=== PATIENT | male | born 1940 | race Caucasian/White ===

== ENCOUNTER 2017-04-11 12:53 | Inpatient (IN) | payer OTHER ==
[2017-04-11 13:28] LABS: BILIRUBIN,URINE NEGATIVE (NEGATIVE); BLOOD/HEMOGLOBIN,URINE 3+ (NEGATIVE); GLUCOSE, URINE NEGATIVE (NEGATIVE); KETONES,URINE NEGATIVE (NEGATIVE); LEUKOCYTE ESTERASE ,URINE NEGATIVE (NEGATIVE); NITRITES,URINE NEGATIVE (NEGATIVE); PROTEIN,URINE 3+ (NEGATIVE); UROBILINOGEN,URINE NORMAL (NORMAL)
[2017-04-11 13:34] LABS: APPEARANCE,URINE HAZY (CLEAR); COLOR,URINE YELLOW (YELLOW)
[2017-04-11 13:36] LABS: RBC,URINE 0-2 /HPF (NEGATIVE)
[2017-04-11 13:37] LABS: BACTERIA,URINE TRACE /HPF (NEGATIVE); MUCUS,URINE FEW /HPF (NEGATIVE); SQUAMOUS EPITHELIAL CELL,UR NEGATIVE /HPF (NEGATIVE)
[2017-04-11 13:38] LABS: BASOPHILS # (AUTO) 0.1 X10^3/uL (0.0-0.1); BASOPHILS % (AUTO) 0.6 % (0.2-1.0); EOSINOPHILS # (AUTO) 0.1 x10^3/uL (0.0-0.2); EOSINOPHILS % (AUTO) 1.1 % (0.9-2.9); HEMATOCRIT 44.3 % (42.0-54.0); HEMOGLOBIN 14.9 g/dL (13.5-18.0); LYMPHOCYTES # (AUTO) 0.7 X10^3/uL (1.3-2.9); LYMPHOCYTES % (AUTO) 5.5 % (21.0-51.0); MEAN CORPUSCULAR HEMOGLOBIN 30.2 pg (27.0-34.0); MEAN CORPUSCULAR HGB CONC 33.6 g/dL (33.0-35.0); MEAN PLATELET VOLUME 8.1 fL (7.4-11.0); MONOCYTES # (AUTO) 1.1 x10^3/uL (0.3-0.8); MONOCYTES % (AUTO) 8.2 % (0.0-13.0); NEUTROPHILS # (AUTO) 11.4 x10^3/uL (2.2-4.8); NEUTROPHILS % (AUTO) 84.6 % (42.0-75.0); PLATELET COUNT 349 X10^3/uL (150.0-450.0); RED BLOOD COUNT 4.92 X10^6/uL (4.7-6.0); RED CELL DISTRIBUTION WIDTH 15.6 % (11.6-16.5); WHITE BLOOD COUNT 13.4 X10^3/uL (3.6-10.0)
--- NOTE | 2017-04-11 13:44 | DR.AMS ---
HPI - Time Seen Time seen: 13:10 - PCP Primary Care Physician: REGINA RODRIGUEZ - HPI Comment HPI Comment: DIAGNOSE WITH A FIB. MEDICATION NOT FILL YET. PLACE ON ASPIRIN DUE TO FRQENT FALL AND CARDIOZEM. NO FEVER. HAVE G TUBE RECENTLY PLACE THAT MAY BE DISLODGE.PATIENT EATS PUREE AND THICKEN FLUID. TAKE MEDS ORAALY WELL PER PPPPATIENTS . - Complaint Cheif Complaint Doctors Comments: AMS, WEAK, FREQUENT FALL. Chief Complaint:: PT BROUGHT TO ER PER [facility] WITH C/O HIS NOT BEING ABLE TO TAKE CARE OF HIM AND HIM HAVING ALZHEIMERS AND DEMENITIA , AND PT' PEG TUBE DOES NOT LOOK RIGHT TO HIS ... EMS STATES " PTS SAY'S SHE DONE.. Self Treatment fo Chief Complaint: PTS PEG TUBE IS INTACT PLACEMENT CHECKED ,,, , DARK DRAINAGE NOTED . - Reviewed Nurses Notes Reviewed: Yes - Source History Provided: Patient, EMS - Mode of Arrival Mode of Arrival: EMS - Timing Onset of Chief Complaint: 04/11/17 Came On: Gradually Symptoms: Worsening - Duration Duration: Constant Duration: Days - Severity Severity: Moderate, Unable to care for self - Context History Of: Dementia - Associated Signs and Symptoms Associated Signs and Symptoms: Generalized Weakness, Change in Memory PMH - PMH Past Medical History: No Past Surgical History: No - Family History History of Family Medical Conditions: No - Social History Does any household member use tobacco: No Alcohol Use: None Lives With: Family Lives Where: Home - infectious screening In the last 2 months have you had wt loss of >10#?: YES Have you had fever, night sweats or hemotysis?: No Have you traveled outside the country in the last 6 months?: No Isolation: Standard ROS - Review of Systems Constitutional: Weakness, Fatigue. negative: Chills, Fever Eyes: negative: Eye Pain, Discharge ENTM: No Symptoms Reported. negative: Ear Pain, Nose Discharge, Nose Congestion , Throat Pain Respiratoy: Non-Productive Cough, Short of Breath, Wheezing. negative: Productive Cough, Hemoptysis Cardiovascular: negative: Syncope (NEAR SYNCOPE) Gastrointestinal/Abdominal: Abdominal Pain (PAIN AROUNG G TUBE) Genitourinary: negative: Dysuria, Hematuria Neurological: Headache, Weakness, Dizziness Musculoskeletal: Muscle Pain Integumentary: Rash Hematologic/Lymphatic: Easy Bleeding, Easy Bruising Endocrine: Increased Thirst All Other Systems: Reviewed and Negative PE - Vitals Vital Signs: Temp Pulse Pulse Resp BP BP Pulse Ox 04/12/17 06:31 170/82 04/12/17 04:00 98.7 F 108 H 17 153/82 98 04/12/17 00:00 98.9 F 113 H 20 150/96 98 04/11/17 20:00 98.9 F 119 H 18 172/88 98 04/11/17 17:00 127 H 18 184/92 99 04/11/17 16:42 127 H 15 177/100 100 04/11/17 16:00 99 F 124 H 15 183/100 100 04/11/17 14:56 102 H 18 166/92 100 04/11/17 14:55 119 H 20 162/99 100 04/11/17 12:54 97.2 F L 114 H 20 178/108 100 - General Limitations: Altered Mental Status General Appearance: Alert - Head Head Exam: Normal Inspection Head Exam Physical: Other (NONE) - Eyes Eye exam: PERRL. negative: Scleral Icterus, Conjunctival Injection Pupils: Regular, Round: Bilateral, Reactive: Bilateral - ENT ENT Exam: Normal Oropharynx, Normal External Ear Exam, TM's Normal Bilaterally External Ear Exam: Normal External Inspection TM/Canal Exam: Bilateral Normal Nose Exam: Normal Nose Exam Mouth Exam: Normal Inspection Throat Exam: Normal Inspection - Neck Neck Exam: Normal Inspection - Chest Chest Inspection: Symmetric Chest Wall Rise - Respiratory Respiratory Exam: Normal Lung Sounds Bilat Respiratory Exam: Bilateral Wheezing, Bilateral Rhonchi, Lower Wheezing, Lower Rhonchi - Cardiovascular Cardiovascular Exam: Tachycardia, Irregular Rhythm - Abdominal Exam Abdominal Exam: Normal Bowel Sounds, Soft, Tenderness Abdominal Tenderness: Mild - Extremities Extremities Exam: Edema (1 PLUS) - Back Back Exam: Paraspinal Tenderness - Neurological Cranial Nerve Exam: EOM Function (II, III, IV, ): Normal, Facial Sensation (V) : Normal, Facial Palsy (VII): Normal, Gag reflex (XI): Normal, Tongue Deviation : Normal Upper Motor Neuron Exam: Babinski Sign: Normal DTR: achilles tendon (L): 4+, achilles tendon (R): 4+ - Psychological Psychiatric Exam: Agitated - Skin Skin Exam: Erythema MDM - Additional Information Obtained Additional Information Obtained From: Family - Differential Diagnosis Metabolic: Dehydration, Hypercalcemia, Hypernatremia, Hypoglycemia, Hyponatremia , Hypoxemia Infectious: Sepsis, UTI Course - Treatment Treatment: SEE ORDERS. - Consultation Consultation Comments: DISCUSS PATIENT WITH DR. LAU. HE WILL ADMIT PATIENT. - Education/Counseling Education/Counseling: Patient, Family Educated On: Diagnosis ROR - Labs Reviewed Laboratory Results Reviewed?: Yes Result Diagrams: 04/12/17 05:25 04/12/17 05:25 Laboratory: 04/12/17 05:46 Peg Tube Gram Stain - Final WBC 10.0 X10^3/uL (3.6-10.0) 04/12/17 05:25 RBC 4.39 X10^6/uL (4.7-6.0) L 04/12/17 05:25 Hgb 13.4 g/dL (13.5-18.0) L 04/12/17 05:25 Hct 39.6 % (42.0-54.0) L 04/12/17 05:25 MCV 90.2 fL (80.0-100.0) 04/12/17 05:25 MCH 30.6 pg (27.0-34.0) 04/12/17 05:25 MCHC 33.9 g/dL (33.0-35.0) 04/12/17 05:25 RDW 15.2 % (11.6-16.5) 04/12/17 05:25 Plt Count 336 X10^3/uL (150.0-450.0) 04/12/17 05:25 MPV 8.4 fL (7.4-11.0) 04/12/17 05:25 Neut % 81.7 % (42.0-75.0) H 04/12/17 05:25 Lymph % 7.0 % (21.0-51.0) L 04/12/17 05:25 [place] % 8.7 % (0.0-13.0) 04/12/17 05:25 Eos % 2.1 % (0.9-2.9) 04/12/17 05:25 Baso % 0.5 % (0.2-1.0) 04/12/17 05:25 Neut # 8.2 x10^3/uL (2.2-4.8) H 04/12/17 05:25 Lymph # 0.7 X10^3/uL (1.3-2.9) L 04/12/17 05:25 [place] # 0.9 x10^3/uL (0.3-0.8) H 04/12/17 05:25 Eos # 0.2 x10^3/uL (0.0-0.2) 04/12/17 05:25 Baso # 0.0 X10^3/uL (0.0-0.1) 04/12/17 05:25 Absolute Nucleated RBC 0.0 /100WBC 04/12/17 05:25 INR Target Range - 04/12/17 05:25 INR 1.17 (0.8-1.3) 04/12/17 05:25 PTT 38.7 SECONDS (22.9-36.5) H 04/12/17 05:25 PTT Comment - 04/12/17 05:25 Sodium 140 mmol/L (136-145) 04/12/17 05:25 Corrected Sodium TNP 04/12/17 05:25 Potassium 3.6 mmol/L (3.5-5.1) 04/12/17 05:25 Chloride 103 mmol/L (98-107) 04/12/17 05:25 Carbon Dioxide 28.3 mmol/L (21-32) 04/12/17 05:25 BUN 18 mg/dL (7-18) 04/12/17 05:25 Creatinine 1.39 mg/dL (0.70-1.30) H 04/12/17 05:25 Est GFR (MDRD) Af Amer > 60 (>60) 04/12/17 05:25 Est GFR (MDRD) Non-Af 53 (>60) L 04/12/17 05:25 Glucose 96 mg/dL (65-99) 04/12/17 05:25 POC Glucose (mg/dL) 108 mg/dL (65-99) H 04/12/17 05:27 Calcium 9.0 mg/dL (8.5-10.1) 04/12/17 05:25 Corrected Calcium 9.8 mg/dL (8.5-10.1) 04/12/17 05:25 Total Bilirubin 0.40 mg/dL (0.2-1.0) 04/12/17 05:25 AST 27 Units/L (15-37) 04/12/17 05:25 ALT 35 Units/L (12-78) 04/12/17 05:25 Alkaline Phosphatase 215 Units/L (46-116) H 04/12/17 05:25 Creatine Kinase 77 Units/L (39-308) 04/12/17 01:40 CK-MB (CK-2) < 1.0 ng/mL (0-4.0) 04/12/17 01:40 CK/CKMB % Calc 1.3 % (<4) 04/12/17 01:40 Troponin I 0.04 ng/mL (0-1.5) 04/12/17 01:40 Total Protein 7.3 g/dL (6.4-8.2) 04/12/17 05:25 Albumin 3.0 g/dL (3.4-5.0) L 04/12/17 05:25 Globulin 4.3 g/dL (2.5-4.5) 04/12/17 05:25 Albumin/Globulin Ratio 0.7 Ratio (1.1-2.1) L 04/12/17 05:25 Triglycerides 65 mg/dL (0-150) 04/12/17 05:25 Cholesterol 170 mg/dL (0-200) 04/12/17 05:25 LDL Cholesterol, Calc 72 mg/dL (0-100) 04/12/17 05:25 HDL Cholesterol 85 mg/dL (40-60) H 04/12/17 05:25 Cholesterol/HDL Ratio 2.0 (0.0-5.0) 04/12/17 05:25 Specimen Type Catherized urine 04/11/17 13:19 Urine Color Yellow (YELLOW) 04/11/17 13:19 Urine Appearance Hazy (CLEAR) 04/11/17 13:19 Urine pH 7.0 (5.0 - 8.0) 04/11/17 13:19 Ur Specific [place] 1.005 (1.000-1.030) 04/11/17 13:19 Urine Protein 3+ (NEGATIVE) 04/11/17 13:19 Urine Glucose (UA) Negative (NEGATIVE) 04/11/17 13:19 Urine Ketones Negative (NEGATIVE) 04/11/17 13:19 Urine Occult Blood 3+ (NEGATIVE) 04/11/17 13:19 Urine Nitrite Negative (NEGATIVE) 04/11/17 13:19 Urine Bilirubin Negative (NEGATIVE) 04/11/17 13:19 Urine Urobilinogen Normal (NORMAL) 04/11/17 13:19 Ur Leukocyte Esterase Negative (NEGATIVE) 04/11/17 13:19 Urine RBC 0-2 /HPF (NEGATIVE) 04/11/17 13:19 Urine WBC 0-2 /HPF (NEGATIVE) 04/11/17 13:19 Ur Squamous Epith Cells Negative /HPF (NEGATIVE) 04/11/17 13:19 Urine Bacteria Trace /HPF (NEGATIVE) 04/11/17 13:19 Urine Mucus Few /HPF (NEGATIVE) 04/11/17 13:19 Ur Culture Indicated? No/not indicated 04/11/17 13:19 - XRAY XRAY Interpreted by: Radiologist XRAY Findings: REPORT DISCUSS WITH PATIENT. - EKG Rhythm: Afib (WITH RVR. EKG NOTED.) - Diagnosis Discharge Problem: Atrial fibrillation with RVR, Dehydration, Generalized weakness Altered mental status Qualifiers: Altered mental status type: disorientation Qualified Code(s): R41.0 - Disorientation, unspecified - Discharge Plan Disposition: ADMITTED INPATIENT Condition: Stable - Follow ups/Referrals - Instructions
[2017-04-11 13:54] LABS: BLOOD UREA NITROGEN 24 mg/dL (7-18); CALCIUM 9.6 mg/dL (8.5-10.1); CARBON DIOXIDE 27.7 mmol/L (21-32); CHLORIDE 101 mmol/L (98-107); COR NA(FOR HYPERGLY) 142 mmol/L (136-145); CREATININE 1.68 mg/dL (0.70-1.30); SODIUM 141 mmol/L (136-145); TROPONIN I 0.03 ng/mL (0-1.5); eGFR BLACK RACES 51 (>60); eGFR NON BLACK RACES 42 (>60)
[2017-04-11 13:58] LABS: ALANINE AMINOTRANSFERASE 43 Units/L (12-78); ALBUMIN 3.5 g/dL (3.4-5.0); ALKALINE PHOSPHATASE 249 Units/L (46-116); ASPARTATE AMINO TRANSFERASE 34 Units/L (15-37); CKMB % 1.5 % (<4); CREATINE KINASE 102 Units/L (39-308); CREATINE KINASE MB 1.5 ng/mL (0-4.0); TOTAL PROTEIN 8.2 g/dL (6.4-8.2)
--- NOTE | 2017-04-11 14:10 | RAD ---
HISTORY: Chest pain Study: Single view of the chest. Comparison: None. Findings: The cardiomediastinal silhouette is normal. No focal consolidations, pleural effusions or pneumothora x. Osseous structures demonstrate no acute abnormality. IMPRESSION: 1. No acute cardiopulmonary process. Reported By:
--- NOTE | 2017-04-11 14:20 | RAD ---
HISTORY: Peg tube placement. Study: Two views of the abdomen. Comparison: None. Findings: There is a PEG tube overlying the expected area of the stomach. Contrast injection demonstrates contr ast within the stomach . Evaluation of the abdomen demonstrates a normal bowel gas pattern. No patho logical soft tissue mass or calcification can be observed. The bony structures are grossly intact. IMPRESSION: 1. No evidence for acute abdominal pathology identified. 2. A PEG tube that appears to be in good position. Reported By:
[2017-04-11] MEDS ORDERED: NS 1000 ML 1,000 ML ONE (14:52)
[2017-04-11] MEDS ORDERED: CARDIZEM TAB 30 MG PLAIN ONE (15:13)
[2017-04-11] MEDS ORDERED: CARDIZEM TAB 30 MG PLAIN PO SCH (16:00)
[2017-04-11] MEDS: NS 1000 ML 1,000 ML IV SCH (16:23)
[2017-04-11] MEDS ORDERED: COREG TAB 6.25 MG ONE (18:11)
[2017-04-11] MEDS: COREG TAB 6.25 MG PO SCH ×2 (18:15→21:29)
[2017-04-11 19:44] LABS: CKMB % 1.3 % (<4); CREATINE KINASE MB 1.1 ng/mL (0-4.0); TROPONIN I 0.03 ng/mL (0-1.5)
[2017-04-11] MEDS: NORCO 5/325 MG TAB PO PRN (20:58)
[2017-04-11] MEDS: VALIUM PO PRN (20:58)
[2017-04-11] MEDS: CARDIZEM TAB 30 MG PLAIN PO SCH (20:59)
[2017-04-11] MEDS: HumuLIN R SUBCUT PRN (21:01)
[2017-04-12] MEDS: NS 1000 ML 1,000 ML IV SCH ×4 (01:10→21:18)
[2017-04-12 02:09] LABS: CKMB % 1.3 % (<4); CREATINE KINASE 77 Units/L (39-308); CREATINE KINASE MB < 1.0 ng/mL (0-4.0); TROPONIN I 0.04 ng/mL (0-1.5)
[2017-04-12 05:40] LABS: BASOPHILS % (AUTO) 0.5 % (0.2-1.0); EOSINOPHILS # (AUTO) 0.2 x10^3/uL (0.0-0.2); EOSINOPHILS % (AUTO) 2.1 % (0.9-2.9); HEMATOCRIT 39.6 % (42.0-54.0); HEMOGLOBIN 13.4 g/dL (13.5-18.0); LYMPHOCYTES # (AUTO) 0.7 X10^3/uL (1.3-2.9); MEAN CORPUSCULAR HEMOGLOBIN 30.6 pg (27.0-34.0); MEAN CORPUSCULAR HGB CONC 33.9 g/dL (33.0-35.0); MEAN CORPUSCULAR VOLUME 90.2 fL (80.0-100.0); MEAN PLATELET VOLUME 8.4 fL (7.4-11.0); MONOCYTES # (AUTO) 0.9 x10^3/uL (0.3-0.8); MONOCYTES % (AUTO) 8.7 % (0.0-13.0); NEUTROPHILS # (AUTO) 8.2 x10^3/uL (2.2-4.8); NEUTROPHILS % (AUTO) 81.7 % (42.0-75.0); PLATELET COUNT 336 X10^3/uL (150.0-450.0); RED BLOOD COUNT 4.39 X10^6/uL (4.7-6.0); RED CELL DISTRIBUTION WIDTH 15.2 % (11.6-16.5)
[2017-04-12 05:56] LABS: ALANINE AMINOTRANSFERASE 35 Units/L (12-78); ALKALINE PHOSPHATASE 215 Units/L (46-116); ASPARTATE AMINO TRANSFERASE 27 Units/L (15-37); BLOOD UREA NITROGEN 18 mg/dL (7-18); CARBON DIOXIDE 28.3 mmol/L (21-32); CHLORIDE 103 mmol/L (98-107); CHOLESTEROL 170 mg/dL (0-200); COR CA(FOR HYPOALB) 9.8 mg/dL (8.5-10.1); CREATININE 1.39 mg/dL (0.70-1.30); HDL CHOLESTEROL 85 mg/dL (40-60); SODIUM 140 mmol/L (136-145); TOTAL PROTEIN 7.3 g/dL (6.4-8.2); TRIGLYCERIDES 65 mg/dL (0-150); eGFR BLACK RACES > 60 (>60); eGFR NON BLACK RACES 53 (>60)
[2017-04-12] MEDS: CARDIZEM TAB 30 MG PLAIN PO SCH (06:02)
[2017-04-12] MEDS: VALIUM PO PRN (06:03)
[2017-04-12] MEDS: NORCO 5/325 MG TAB PO PRN ×2 (06:05→20:52)
[2017-04-12] MEDS: COREG TAB 6.25 MG PO SCH ×2 (08:22→20:52)
[2017-04-12] MEDS ORDERED: BISACODYL PO PRN (08:56)
[2017-04-12] MEDS ORDERED: TYLENOL 325 MG TAB PO PRN (08:56)
[2017-04-12] MEDS ORDERED: OXYBUTYNIN CHLORIDE PO SCH (09:00)
[2017-04-12] MEDS ORDERED: IMODIUM CAP 2 MG PO PRN (09:04)
[2017-04-12] MEDS ORDERED: DULCOLAX TAB EC 5 MG PO PRN (09:33)
[2017-04-12] MEDS: CARDIZEM INJ 125 MG VIAL 125 MG in NS 100 ML IV 100 ML IV PRN (09:56)
[2017-04-12] MEDS: ELIQUIS PO SCH ×2 (09:57→20:49)
[2017-04-12] MEDS: FERROUS SULFATE PO SCH (09:57)
[2017-04-12] MEDS: TAB-A-VITE PO SCH (09:58)
[2017-04-12] MEDS: EFFEXOR XR 75 MG CAP PO SCH (09:58)
[2017-04-12] MEDS: ZANTAC PO SCH ×2 (09:58→20:52)
[2017-04-12] MEDS: FLOMAX PO SCH (09:58)
--- NOTE | 2017-04-12 10:50 | DR.H&P ---
H&P - History & Physical for Day of: H&P Date: 04/11/17 - Chief Complaint Chief Complaint: ALTERED MENTAL STATUS, A-FIB - Allergies Allergies/Adverse Reactions: Allergies Allergy/AdvReac Type Severity Reaction Status Date / Time Penicillins Allergy Verified 04/11/17 13:52 Sulfa (Sulfonamide Allergy Verified 04/11/17 13:52 Antibiotics) - History of Present Illness History of Present Illness: IS A 76 YEAR OLD PATIENT OF OURS WHO PRESENTED TO THE EMERGENCY ROOM VIA EMS FROM [facility] WITH ALTERED MENTAL STATUS. PATIENTS STATES THAT HE HAS BEEN CONFUSED AND AGITATED AT HOME AND THAT SHE IS NO LONGER ABLE TO CARE FOR HIM HERSELF DUE TO HIS CONDITION GRADUALLY GETTING WORSE. SHE REPORTS THAT PATIENT WAS RECENTLY IN THE [facility] IN [place], HOWEVER, SHE PULLED HIM OUT AND BROUGHT HIM HOME TO TRY TO TAKE CARE OF HIM HERSELF. SHE WISHES FOR PLACEMENT IN [facility] TO BE CONSIDERED. A HISTORY OF ALZHEIMERS AND DEMENTIA IS NOTED. SHE ALSO REPORTS THAT PATIENT IS UNABLE TO TOLERATED ORAL FLUIDS AND GETS STRANGLED. PATIENT HAS A PEG TUBE. DARK DRAINAGE IS NOTED AROUND SITE OF PEG TUBE. ON EXAMINATION, PATIENT IS ORIENTED TO HIS ONLY. LUNGS ARE NOTED CLEAR TO AUSCULTATION BILATERALLY. ABDOMEN IS SOFT, ROUND, NON-TENDER WITH NORMAL BOWEL SOUNDS NOTED IN ALL QUADRANTS. ON ARRIVAL TO ER, VITALS WERE 97.1-404-65-100%-178/108. CBC, CMP, URINALYSIS, AND XRAYS WERE OBTAINED. ABNORMAL LAB VALUES INCLUDE THE FOLLOWING: WBC 13.4, BUN 24, CREATININE 1.68, GFR af 51, GFR non 42, Glucose 140, Alk Phos 249, Globulin 4.7, A/G Ratio 0.7. URINALYSIS REPORTS Hazy, Protein 3+, Occult Blood 3+, RBC 0-2, WBC 0-2, Bacteria Trace, Mucus Few. CHEST XRAY REPORTS NO ACUTE CARDIOPULMONARY PROCESS. KUB REPORTS NO EVIDENCE FOR ACUTE ABDOMINAL PATHOLOGY IDENTIFIED. A PEG TUBE THAT APPEARS TO BE IN GOOD POSITION. EKG REPORTS ATRIAL FIBRILLATION WITH HR 114. HE WAS GIVEN CARDIZEM 30MG PO IN ER. PATIENT WAS ADMITTED TO ICU FOR FURTHER TREATMENT AND EVALUATION OF A-FIB, AMS, DEHYDRATION, AND WEAKNESS. HE WAS STARTED ON COREG 6.25MG PO BID, VALIUM 5MG PO Q8H PRN, DILTIAZEM 60MG PO Q8H, REGULAR INSULIN SLIDING SCALE, AND NORMAL SALINE AT 75ML/HR. AM LABS WERE ORDERED AND WILL CONTINUE TO MONITOR PATIENT. - Past Medical History Past Medical History: Alzheimers, Coronary Artery Disease, Dementia, Depression , Diabetes, Dyslipidemia, GERD, Hypertension Additional Medical History: PARKINSONS, A-FIB - Past Surgical History Surgical History: Appendectomy, CABG/Valve Surgery, Tonsillectomy - Social History Does patient currently use any type of tobacco product: No Have you used tobacco products in the last 12 months: No Type of Tobacco Use: None How many years tobacco product used: 35 Does any household member use tobacco: No Alcohol Use: None Drug Use: Prescription Drugs - Medications Home Medications: Acetaminophen [TYLENOL 325 MG TAB *] 1 tab PO Q6H PRN 04/11/17 [History Confirmed 04/11/17] Amlodipine Besylate [NORVASC 10 MG *] 1 tab PO DAILY 04/11/17 [History Confirmed 04/11/17] Aspirin [ASPIRIN 81 MG CHEWTAB *] 1 tab PO HS 04/11/17 [History Confirmed ] Bisacodyl [Correctol] 2 tabs PO PRN PRN 04/11/17 [History Confirmed 04/11/17] Carvedilol [COREG TAB 12.5 MG *] 1 tab PO BID 04/11/17 [History Confirmed ] Diazepam [Valium 10 mg] 1 tab PO TID PRN 04/11/17 [History Confirmed 04/11/17] Donepezil HCl [Aricept] 23 mg PO HS 04/11/17 [History Confirmed 04/11/17] Ferrous Sulfate [FERROUS SULFATE *] 1 tab PO DAILY 04/11/17 [History Confirmed 04/11/17] Gabapentin [NEURONTIN CAP 100 MG *] 1 tab PO TID 04/11/17 [History Confirmed ] Hydrocodone-Acet 7.5 mg/325 mg [NORCO 7.5 MG/325 MG *] 1 tab PO TID PRN [History Confirmed 04/11/17] Lamotrigine [Lamotrigine Odt] 1 tab PO TID 04/11/17 [History Confirmed 04/11/17] Loperamide HCl [Loperamide] 1 tab PO TID PRN 04/11/17 [History Confirmed ] Memantine HCl [Namenda] 28 mg PO HS 04/11/17 [History Confirmed 04/11/17] Mirtazapine [Remeron 30 mg] 1 tab PO HS 04/11/17 [History Confirmed 04/11/17] Multivitamin [Once Daily] 1 tab PO DAILY 04/11/17 [History Confirmed 04/11/17] Oxybutynin Chloride [Ditropan Xl] 1 tab PO DAILY 04/11/17 [History Confirmed ] Pravastatin Sodium 1 tab PO HS 04/11/17 [History Confirmed 04/11/17] Primidone [MYSOLINE 50 MG *] 1 tab PO HS 04/11/17 [History Confirmed 04/11/17] Quetiapine Fumarate 1 tab PO HS 04/11/17 [History Confirmed 04/11/17] Ranitidine HCl [ZANTAC TAB 150 MG *] 1 tab PO BID 04/11/17 [History Confirmed ] Tamsulosin HCl [FLOMAX (GENERIC) 0.4 MG *] 1 tab PO DAILY 04/11/17 [History Confirmed 04/11/17] Trazodone HCl 1 - 2 tabs PO HS PRN 04/11/17 [History Confirmed 04/11/17] Venlafaxine HCl [Venlafaxine HCl ER] 1 tab PO TID 04/11/17 [History Confirmed ] - Review of Systems Constitutional: Weakness Eyes: No Symptoms Reported ENT: No Symptoms Reported Respiratory: No Symptoms Reported Cardiovascular: No Symptoms Reported Gastrointestinal: No Symptoms Reported Genitourinary: No Symptoms Reported Musculoskeletal: No Symptoms Reported Skin: No Symptoms Reported Neurological: See HPI, Weakness, Confusion - Physical Exam Vital Signs: Temperature 98.7 F Pulse Rate [Right Brachial] 108 Pulse Rate 114 Respiratory Rate 17 Blood Pressure [Right Arm] 170/82 Blood Pressure 178/108 O2 Sat by Pulse Oximetry 98 Oriented: Person, Not Oriented (ONLY ORIENTED TO ) Eyes: Normal Ear: Normal Nose: Normal Throat: Normal Respiratory: Clear Throughout Cardiovascular: Tachycardia : Normal Auscultation: Bowel Sounds: Normal Palpation: Normal Tenderness: Normal Skin: Normal Musculoskeletal: Instability Psychiatric: Agitation, Other (CONFUSION, AMS ) Mood Description: Anxious Affect: Anxious Speech Pattern: Clear - Assessment/Plan (1) Atrial fibrillation with RVR Status: Acute Plan: CARDIZEM 60MG PO Q8H, TELEMETRY, CONTINUE TO MONITOR (2) Altered mental status Qualifiers: Altered mental status type: disorientation Qualified Code(s): R41.0 - Disorientation, unspecified Status: Acute Plan: VALIUM 5 MG PO Q8H, CONTINUE TO MONITOR (3) Dehydration Status: Acute Plan: NORMAL SALINE @ 75ML/HR, CONTINUE TO MONITOR
[2017-04-12] MEDS: OXYBUTYNIN CHLORIDE ER PO SCH (11:57)
[2017-04-12] MEDS ORDERED: ARICEPT TAB 10 MG PO SCH (12:00)
[2017-04-12] MEDS ORDERED: NAMENDA TAB 10 MG PO SCH (12:00)
[2017-04-12] MEDS: HumuLIN R SUBCUT PRN ×2 (12:32→18:26)
[2017-04-12] MEDS: ARICEPT TAB 10 MG PO SCH (12:55)
[2017-04-12] MEDS: NAMENDA TAB 10 MG PO SCH (12:55)
[2017-04-12] MEDS ORDERED: LAMOTRIGINE PO SCH (14:00)
[2017-04-12] MEDS ORDERED: COLACE CAP 100 MG PO PRN (15:02)
[2017-04-12] MEDS ORDERED: MILK OF MAGNESIA PO PRN (15:02)
[2017-04-12] MEDS: LAMICTAL TAB 100 MG PO SCH ×2 (15:03→21:07)
[2017-04-12] MEDS: NEURONTIN CAP 100 MG PO SCH ×2 (15:04→21:07)
[2017-04-12] MEDS: KLONOPIN TAB 0.5 MG PO SCH (20:50)
[2017-04-12] MEDS: PRAVACHOL PO SCH (20:50)
[2017-04-12] MEDS: REMERON PO SCH (20:51)
[2017-04-12] MEDS: ASPIRIN 81 MG CHEWTAB PO SCH (20:52)
[2017-04-12] MEDS: SNACK - Diabetic Appropriate PO SCH (20:53)
[2017-04-12] MEDS ORDERED: MIRTAZAPINE PO SCH (21:00)
[2017-04-13] MEDS: CARDIZEM INJ 125 MG VIAL 125 MG in NS 100 ML IV 100 ML IV PRN (01:38)
[2017-04-13 05:20] LABS: ALANINE AMINOTRANSFERASE 38 Units/L (12-78); ALBUMIN 2.8 g/dL (3.4-5.0); ALKALINE PHOSPHATASE 211 Units/L (46-116); ASPARTATE AMINO TRANSFERASE 34 Units/L (15-37); BLOOD UREA NITROGEN 23 mg/dL (7-18); CALCIUM 8.4 mg/dL (8.5-10.1); CARBON DIOXIDE 22.9 mmol/L (21-32); CHLORIDE 101 mmol/L (98-107); COR CA(FOR HYPOALB) 9.4 mg/dL (8.5-10.1); COR NA(FOR HYPERGLY) 141 mmol/L (136-145); CREATININE 1.44 mg/dL (0.70-1.30); SODIUM 135 mmol/L (136-145); TOTAL PROTEIN 6.8 g/dL (6.4-8.2); eGFR BLACK RACES > 60 (>60); eGFR NON BLACK RACES 51 (>60)
[2017-04-13 05:29] LABS: BASOPHILS # (AUTO) 0.1 X10^3/uL (0.0-0.1); BASOPHILS % (AUTO) 0.7 % (0.2-1.0); EOSINOPHILS # (AUTO) 0.3 x10^3/uL (0.0-0.2); EOSINOPHILS % (AUTO) 2.9 % (0.9-2.9); HEMATOCRIT 38.5 % (42.0-54.0); LYMPHOCYTES % (AUTO) 11.4 % (21.0-51.0); MEAN CORPUSCULAR HEMOGLOBIN 30.8 pg (27.0-34.0); MEAN CORPUSCULAR HGB CONC 33.7 g/dL (33.0-35.0); MEAN CORPUSCULAR VOLUME 91.5 fL (80.0-100.0); MEAN PLATELET VOLUME 8.4 fL (7.4-11.0); MONOCYTES # (AUTO) 0.8 x10^3/uL (0.3-0.8); MONOCYTES % (AUTO) 9.2 % (0.0-13.0); NEUTROPHILS # (AUTO) 6.7 x10^3/uL (2.2-4.8); NEUTROPHILS % (AUTO) 75.8 % (42.0-75.0); PLATELET COUNT 326 X10^3/uL (150.0-450.0); RED BLOOD COUNT 4.21 X10^6/uL (4.7-6.0); RED CELL DISTRIBUTION WIDTH 15.3 % (11.6-16.5); WHITE BLOOD COUNT 8.8 X10^3/uL (3.6-10.0)
[2017-04-13] MEDS: LAMICTAL TAB 100 MG PO SCH ×3 (06:11→21:06)
[2017-04-13] MEDS: NEURONTIN CAP 100 MG PO SCH ×3 (06:11→21:06)
--- NOTE | 2017-04-13 06:52 | RAD ---
HISTORY: Shortness of breath Study: Chest AP portable Comparison: April 11, 2017 Findings: The patient is status post median sternotomy and CABG. The heart is within normal limits in size. The yash are normal. No acute alveolar infiltrates or pleural effusions are identified. The bony thorax is unremarkable. IMPRESSION: Lungs remain clear Reported By:
[2017-04-13 06:57] VITALS: BMI 16.0
[2017-04-13] MEDS: NS 1000 ML 1,000 ML IV SCH ×3 (07:16→20:44)
[2017-04-13] MEDS: OXYBUTYNIN CHLORIDE ER PO SCH (08:30)
[2017-04-13] MEDS: COREG TAB 6.25 MG PO SCH ×2 (08:30→20:41)
[2017-04-13] MEDS: ELIQUIS PO SCH ×2 (08:30→20:41)
[2017-04-13] MEDS: ZANTAC PO SCH ×2 (08:30→20:40)
[2017-04-13] MEDS: TAB-A-VITE PO SCH (08:30)
[2017-04-13] MEDS: FLOMAX PO SCH (08:30)
[2017-04-13] MEDS: FERROUS SULFATE PO SCH (08:30)
[2017-04-13] MEDS: EFFEXOR XR 75 MG CAP PO SCH (08:30)
[2017-04-13] MEDS: DIFLUCAN 200 MG IV PREMIX* 200 MG/100 ML BAG IV SCH (10:31)
--- NOTE | 2017-04-13 11:09 | PCM.PROG ---
Progress Note - Progress Note for Day of Date: 04/12/17 - Subjective Subjective: WAS ADMITTED FOR ATRIAL FIBRILLATION AND ALTERED MENTAL STATUS. HE IS ALERT AND ORIENTED, SITTING UP IN BED ON MORNING ROUNDS. PATIENT' S IS AT BEDSIDE. TODAY, PATIENT IS NOTED WITH COMPLAINTS OF FEELING LIKE HIS HEART IS RACING AND GENERALIZED WEAKNESS. PATIENT'S REPORTS THAT HE DID NOT SLEEP WELL LAST NIGHT, NOR DOES HE USUALLY SLEEP WELL AT HOME. PATIENT IS NOTED ON TELEMETRY WITH HEARTRATE AT 133 AND RHYTHM SHOWING ATRIAL FIBRILLATION ON MONITOR. HE IS WEARING NASAL CANNULA WITH OXGYEN AT 2LPM. ON EXAMINATION, LUNGS ARE NOTED CLEAR TO AUSCULTATION. ABDOMEN IS SOFT, ROUND, AND NON-TENDER. NORMAL BOWEL SOUNDS ARE NOTED IN ALL QUADRANTS. A PEG TUBE IS NOTED WITH BROWN DRAINAGE. WE WILL ORDER FOR DAILY DRESSING CHANGES AND A WOUND CULTURE OF SITE. HIS VITAL SIGNS THIS MORNING ARE 98.4-133-17-98%-188/101. CBC, CMP, AND EKG WERE OBTAINED. ABNORMAL LAB VALUES INCLUDE THE FOLLOWING: RBC 4.39 , HGB 13.4, HCT 39.6, PTT 38.7, CREATININE 1.39, ALK PHOS 215, ALBUMIN 3.0, HDL 85. EKG REPORTED ATRIAL FIBRILLATION WITH HR OF 113. WHEN QUESTIONED ABOUT HIS CARDIAC HISTORY, PATIENT STATED THAT HE HAD A HEART ATTACK WITH BYPASS AND STENTS IN 1993. HE REPORTS A HISTORY OF CHF AND ATRIAL FIBRILLATION IN THE PAST. PATIENT'S REPORTS THAT SHE DOESN'T FEEL LIKE SHE WOULD BE ABLE TO CARE FOR HIM AT HOME BY HERSELF ANYMORE. SHE WOULD LIKE HIM TO BE CONSIDERED FOR SHELTER PLACEMENT AT [facility]. WE PLAN TO OBTAIN AN ECHOCARDIOGRAM, START ON A CARDIZEM DRIP AND DISCONTINUE THE PO CARDIZEM. WE WILL START KLONOPIN 0.5MG HS AND INCREASE SEROQUEL TO 100MG HS, START ELIQUIS 2.5MG PO BID, GIVE NAMENDA AND ARICEPT AT NOON. WE WILL REVIEW HOME MEDICATIONS. CASE MANAGEMENT WILL ARRANGE FOR PLACEMENT AT [facility]. OTHERWISE, WE PLAN TO FOLLOW UP WITH AM LABS AND CONTINUE TO MONITOR PATIENT. - Past Medical Family Social History Past Med/Fam/Surg Hx: No changes since H&P Allergies: Allergies Penicillins Allergy (Verified 04/11/17 13:52) Sulfa (Sulfonamide Antibiotics) Allergy (Verified 04/11/17 13:52) - Review of Systems ROS: No change since H&P - Vital Signs and I&O's Vital Signs: Temperature 98.7 F Pulse Rate [Right Brachial] 52 Pulse Rate 114 Respiratory Rate 16 Blood Pressure [Right Arm] 98/56 Blood Pressure 178/108 O2 Sat by Pulse Oximetry 97 Intake and Output: Intake & Output 04/10/17 04/11/17 04/12/17 04/13/17 11:59 11:59 11:59 11:59 Intake Total 1450 4218 Output Total 1200 1350 Balance 250 2868 - Physical Exam Oriented: Person, Not Oriented (ONLY ORIENTED TO ) Eyes: Normal Ear: Normal Nose: Normal Throat: Normal Cardiovascular: Tachycardia : Normal Auscultation: Bowel Sounds: Normal Palpation: Normal Tenderness: Normal Skin: Normal Musculoskeletal: Instability Psychiatric: Agitation, Other (CONFUSION, AMS ) Mood Description: Anxious Affect: Anxious Speech Pattern: Clear - Laboratory and Diagnostics Result Diagrams: 04/13/17 04:55 04/13/17 04:55 Labs: 04/12/17 05:46 Peg Tube Gram Stain - Final 04/12/17 05:46 Peg Tube Wound Culture - Preliminary Laboratory WBC 8.8 X10^3/uL (3.6-10.0) 04/13/17 04:55 RBC 4.21 X10^6/uL (4.7-6.0) L 04/13/17 04:55 Hgb 13.0 g/dL (13.5-18.0) L 04/13/17 04:55 Hct 38.5 % (42.0-54.0) L 04/13/17 04:55 MCV 91.5 fL (80.0-100.0) 04/13/17 04:55 MCH 30.8 pg (27.0-34.0) 04/13/17 04:55 MCHC 33.7 g/dL (33.0-35.0) 04/13/17 04:55 RDW 15.3 % (11.6-16.5) 04/13/17 04:55 Plt Count 326 X10^3/uL (150.0-450.0) 04/13/17 04:55 MPV 8.4 fL (7.4-11.0) 04/13/17 04:55 Neut % 75.8 % (42.0-75.0) H 04/13/17 04:55 Lymph % 11.4 % (21.0-51.0) L 04/13/17 04:55 [place] % 9.2 % (0.0-13.0) 04/13/17 04:55 Eos % 2.9 % (0.9-2.9) 04/13/17 04:55 Baso % 0.7 % (0.2-1.0) 04/13/17 04:55 Neut # 6.7 x10^3/uL (2.2-4.8) H 04/13/17 04:55 Lymph # 1.0 X10^3/uL (1.3-2.9) L 04/13/17 04:55 [place] # 0.8 x10^3/uL (0.3-0.8) 04/13/17 04:55 Eos # 0.3 x10^3/uL (0.0-0.2) H 04/13/17 04:55 Baso # 0.1 X10^3/uL (0.0-0.1) 04/13/17 04:55 Absolute Nucleated RBC 0.0 /100WBC 04/13/17 04:55 INR Target Range - 04/12/17 05:25 INR 1.17 (0.8-1.3) 04/12/17 05:25 PTT 38.7 SECONDS (22.9-36.5) H 04/12/17 05:25 PTT Comment - 04/12/17 05:25 Sodium 135 mmol/L (136-145) L 04/13/17 04:55 Corrected Sodium 141 mmol/L (136-145) 04/13/17 04:55 Potassium 4.7 mmol/L (3.5-5.1) 04/13/17 04:55 Chloride 101 mmol/L (98-107) 04/13/17 04:55 Carbon Dioxide 22.9 mmol/L (21-32) 04/13/17 04:55 BUN 23 mg/dL (7-18) H 04/13/17 04:55 Creatinine 1.44 mg/dL (0.70-1.30) H 04/13/17 04:55 Est GFR (MDRD) Af Amer > 60 (>60) 04/13/17 04:55 Est GFR (MDRD) Non-Af 51 (>60) L 04/13/17 04:55 Glucose 353 mg/dL (65-99) H 04/13/17 04:55 POC Glucose (mg/dL) 374 mg/dL (65-99) H 04/13/17 05:57 Calcium 8.4 mg/dL (8.5-10.1) L 04/13/17 04:55 Corrected Calcium 9.4 mg/dL (8.5-10.1) 04/13/17 04:55 Total Bilirubin 0.40 mg/dL (0.2-1.0) 04/13/17 04:55 AST 34 Units/L (15-37) 04/13/17 04:55 ALT 38 Units/L (12-78) 04/13/17 04:55 Alkaline Phosphatase 211 Units/L (46-116) H 04/13/17 04:55 Creatine Kinase 77 Units/L (39-308) 04/12/17 01:40 CK-MB (CK-2) < 1.0 ng/mL (0-4.0) 04/12/17 01:40 CK/CKMB % Calc 1.3 % (<4) 04/12/17 01:40 Troponin I 0.04 ng/mL (0-1.5) 04/12/17 01:40 Total Protein 6.8 g/dL (6.4-8.2) 04/13/17 04:55 Albumin 2.8 g/dL (3.4-5.0) L 04/13/17 04:55 Globulin 4.0 g/dL (2.5-4.5) 04/13/17 04:55 Albumin/Globulin Ratio 0.7 Ratio (1.1-2.1) L 04/13/17 04:55 Triglycerides 65 mg/dL (0-150) 04/12/17 05:25 Cholesterol 170 mg/dL (0-200) 04/12/17 05:25 LDL Cholesterol, Calc 72 mg/dL (0-100) 04/12/17 05:25 HDL Cholesterol 85 mg/dL (40-60) H 04/12/17 05:25 Cholesterol/HDL Ratio 2.0 (0.0-5.0) 04/12/17 05:25 Specimen Type Catherized urine 04/11/17 13:19 Urine Color Yellow (YELLOW) 04/11/17 13:19 Urine Appearance Hazy (CLEAR) 04/11/17 13:19 Urine pH 7.0 (5.0 - 8.0) 04/11/17 13:19 Ur Specific [place] 1.005 (1.000-1.030) 04/11/17 13:19 Urine Protein 3+ (NEGATIVE) 04/11/17 13:19 Urine Glucose (UA) Negative (NEGATIVE) 04/11/17 13:19 Urine Ketones Negative (NEGATIVE) 04/11/17 13:19 Urine Occult Blood 3+ (NEGATIVE) 04/11/17 13:19 Urine Nitrite Negative (NEGATIVE) 04/11/17 13:19 Urine Bilirubin Negative (NEGATIVE) 04/11/17 13:19 Urine Urobilinogen Normal (NORMAL) 04/11/17 13:19 Ur Leukocyte Esterase Negative (NEGATIVE) 04/11/17 13:19 Urine RBC 0-2 /HPF (NEGATIVE) 04/11/17 13:19 Urine WBC 0-2 /HPF (NEGATIVE) 04/11/17 13:19 Ur Squamous Epith Cells Negative /HPF (NEGATIVE) 04/11/17 13:19 Urine Bacteria Trace /HPF (NEGATIVE) 04/11/17 13:19 Urine Mucus Few /HPF (NEGATIVE) 04/11/17 13:19 Ur Culture Indicated? No/not indicated 04/11/17 13:19 - Plan (1) Atrial fibrillation with RVR Status: Acute Plan: CARDIZEM DRIP, ELIQUIS 2.5MG PO BID, TELEMETRY, CONTINUE TO MONITOR (2) Altered mental status Status: Acute Qualifiers: Altered mental status type: disorientation Qualified Code(s): R41.0 - Disorientation, unspecified Plan: CONTINUE NAMENDA, CONTINUE ARICEPT, CONTINUE TO MONITOR (3) Dehydration Status: Acute Plan: NORMAL SALINE @ 75ML/HR, CONTINUE TO MONITOR (4) Coronary artery disease Status: Chronic Qualifiers: Coronary Disease-Associated Artery/Lesion type: bypass graft [place] vs. transplanted heart: [place] heart Associated angina: angina presence unspecified Qualified Code(s): I25.810 - Atherosclerosis of coronary artery bypass graft(s) without angina pectoris Plan: CONTINUE ASA 81MG HS, CONTINUE TO MONITOR (5) Insomnia Status: Acute Qualifiers: Insomnia type: due to medical condition Qualified Code(s): G47.01 - Insomnia due to medical condition Plan: KLONOPRIN 0.5MG HS, SEROQUEL 100MG HS, CONTINUE TO MONITOR (6) Iron (Fe) deficiency anemia Status: Chronic Qualifiers: Iron deficiency anemia type: inadequate dietary iron intake Qualified Code( s): D50.8 - Other iron deficiency anemias Plan: CONTINUE FERROUS SULFATE, CONTINUE TO MONITOR (7) Hypertension Status: Chronic Qualifiers: Hypertension type: essential hypertension Qualified Code(s): I10 - Essential (primary) hypertension Plan: CONTINUE COREG, CONTINUE ZESTRIL, CONTINUE TO MONITOR (8) Dementia Status: Chronic Qualifiers: Dementia type: Parkinson's disease Dementia behavioral disturbance: with behavioral disturbance Qualified Code(s): G20 - Parkinson's disease; F02.81 - Dementia in other diseases classified elsewhere with behavioral disturbance Plan: CONTINUE NAMENDA, CONTINUE ARICEPT, CONTINUE LAMICTAL, CONTINUE TO MONITOR (9) GERD (gastroesophageal reflux disease) Status: Chronic Qualifiers: Esophagitis presence: esophagitis presence not specified Qualified Code(s) : K21.9 - Gastro-esophageal reflux disease without esophagitis Plan: CONTINUE ZANTAC, CONTINUE TO MONITOR (10) Hyperlipidemia Status: Chronic Qualifiers: Hyperlipidemia type: mixed hyperlipidemia Qualified Code(s): E78.2 - Mixed hyperlipidemia Plan: CONTINUE PRAVACHOL, CONTINUE TO MONITOR (11) BPH (benign prostatic hyperplasia) Status: Chronic Qualifiers: Lower urinary tract symptom detail: unspecified Plan: CONTINUE FLOMAX, CONTINUE OXYBUTYNIN, CONTINUE TO MONITOR (12) Depression Status: Chronic Qualifiers: Depression Type: major depressive disorder Major depression recurrence: recurrent Active/Remission status: remission status unspecified Qualified Code(s): F33.9 - Major depressive disorder, recurrent, unspecified Plan: CONTINUE REMERON, CONTINUE EFFEXOR, CONTINUE TO MONITOR
[2017-04-13] MEDS: HumuLIN R SUBCUT PRN ×3 (11:34→21:07)
[2017-04-13] MEDS: ARICEPT TAB 10 MG PO SCH (11:34)
[2017-04-13] MEDS: ZESTRIL TAB 5 MG PO SCH (11:35)
[2017-04-13] MEDS: NAMENDA TAB 10 MG PO SCH (11:35)
[2017-04-13] MEDS: CARDIZEM SR 120 MG PO SCH (17:38)
[2017-04-13] MEDS: ASPIRIN 81 MG CHEWTAB PO SCH (20:40)
[2017-04-13] MEDS: KLONOPIN TAB 0.5 MG PO SCH (20:41)
[2017-04-13] MEDS: REMERON PO SCH (20:42)
[2017-04-13] MEDS: PRAVACHOL PO SCH (20:42)
[2017-04-13] MEDS: SNACK - Diabetic Appropriate PO SCH (20:44)
[2017-04-14] MEDS: NEURONTIN CAP 100 MG PO SCH ×3 (05:05→20:59)
[2017-04-14] MEDS: LAMICTAL TAB 100 MG PO SCH ×3 (05:05→20:59)
[2017-04-14 05:22] LABS: BASOPHILS # (AUTO) 0.1 X10^3/uL (0.0-0.1); BASOPHILS % (AUTO) 0.8 % (0.2-1.0); EOSINOPHILS # (AUTO) 0.2 x10^3/uL (0.0-0.2); HEMATOCRIT 33.1 % (42.0-54.0); HEMOGLOBIN 10.9 g/dL (13.5-18.0); LYMPHOCYTES # (AUTO) 0.7 X10^3/uL (1.3-2.9); LYMPHOCYTES % (AUTO) 7.4 % (21.0-51.0); MEAN CORPUSCULAR HEMOGLOBIN 30.4 pg (27.0-34.0); MEAN CORPUSCULAR VOLUME 92.3 fL (80.0-100.0); MEAN PLATELET VOLUME 8.4 fL (7.4-11.0); MONOCYTES # (AUTO) 0.8 x10^3/uL (0.3-0.8); MONOCYTES % (AUTO) 8.3 % (0.0-13.0); NEUTROPHILS # (AUTO) 7.8 x10^3/uL (2.2-4.8); NEUTROPHILS % (AUTO) 81.5 % (42.0-75.0); PLATELET COUNT 287 X10^3/uL (150.0-450.0); RED BLOOD COUNT 3.59 X10^6/uL (4.7-6.0); RED CELL DISTRIBUTION WIDTH 15.3 % (11.6-16.5); WHITE BLOOD COUNT 9.6 X10^3/uL (3.6-10.0)
[2017-04-14] MEDS: HumuLIN R SUBCUT PRN ×4 (05:32→20:48)
[2017-04-14 05:38] LABS: ALBUMIN 2.5 g/dL (3.4-5.0); CALCIUM 7.9 mg/dL (8.5-10.1); CARBON DIOXIDE 23.1 mmol/L (21-32); COR CA(FOR HYPOALB) 9.1 mg/dL (8.5-10.1); CREATININE 1.55 mg/dL (0.70-1.30)
[2017-04-14] MEDS: OXYBUTYNIN CHLORIDE ER PO SCH (09:30)
[2017-04-14] MEDS: COREG TAB 6.25 MG PO SCH ×2 (09:30→20:45)
[2017-04-14] MEDS: EFFEXOR XR 75 MG CAP PO SCH (09:30)
[2017-04-14] MEDS: TAB-A-VITE PO SCH (09:30)
[2017-04-14] MEDS: ZANTAC PO SCH ×2 (09:30→20:45)
[2017-04-14] MEDS: CARDIZEM SR 120 MG PO SCH (09:31)
[2017-04-14] MEDS: ZESTRIL TAB 5 MG PO SCH (09:31)
[2017-04-14] MEDS: ELIQUIS PO SCH ×2 (09:31→20:46)
[2017-04-14] MEDS: FERROUS SULFATE PO SCH (09:32)
[2017-04-14] MEDS: FLOMAX PO SCH (09:32)
[2017-04-14] MEDS: DIFLUCAN 200 MG IV PREMIX* 200 MG/100 ML BAG IV SCH (09:36)
[2017-04-14] MEDS: NS 1000 ML 1,000 ML IV SCH ×2 (09:36→21:00)
[2017-04-14] MEDS: ARICEPT TAB 10 MG PO SCH (11:27)
[2017-04-14] MEDS: NAMENDA TAB 10 MG PO SCH (11:27)
--- NOTE | 2017-04-14 11:43 | PCM.PROG ---
Progress Note - Progress Note for Day of Date: 04/13/17 - Subjective Subjective: WAS ADMITTED FOR ATRIAL FIBRILLATION AND ALTERED MENTAL STATUS. HE IS ALERT AND ORIENTED, LYING IN BED ON MORNING ROUNDS. TODAY, PATIENT COMPLAINTS OF GENERALIZED WEAKNESS, HOWEVER, REPORTS THAT HE FEELS LIKE HE CAN BREATHE EASIER. PATIENT IS NOTED ON TELEMETRY WITH HEARTRATE AT 67BPM AND ATRIAL FIBRILLATION RHYTHM ON MONITOR. HE IS WEARING NASAL CANNULA WITH OXGYEN AT 2LPM. ON EXAMINATION, LUNGS ARE NOTED CLEAR TO AUSCULTATION. ABDOMEN IS SOFT, ROUND, AND NON-TENDER. NORMAL BOWEL SOUNDS ARE NOTED IN ALL QUADRANTS. A PEG TUBE IS NOTED WITH DRESSING DRY AND INTACT. HIS VITAL SIGNS THIS MORNING ARE 98.7-67-14-98%-115/62. CBC, CMP, AND EKG WERE OBTAINED. ABNORMAL LAB VALUES INCLUDE THE FOLLOWING: RBC 3.59, HGB 10.9, HCT 33.1, SODIUM 135, BUN 23, CREATININE 1.44, GLUCOSE 353, CALCIUM 8.4, ALK PHOS 211, ALBUMIN 2.8. EKG REPORTED ATRIAL FIBRILLATION WITH HR OF 61. WE OBTAINED AN ECHO. IT REPORTED AN EJECTION FRACTION OF 44%. WE PLAN TO STARTE GLUCERNA FEEDINGS AT 10/CC HR. WE WILL DISCONTINUE THE CARDIZEM DRIP AND START CARDIZEM CD 120MG DAILY AND LISINOPRIL 5MG DAILY. CASE MANAGEMENT IS CHECKING INTO SNF CARE AT [facility]. WE PLAN TO FOLLOW UP WITH AM LABS AND CONTINUE TO MONITOR PATIENT. - Past Medical Family Social History Past Med/Fam/Surg Hx: No changes since H&P Allergies: Allergies Penicillins Allergy (Verified 04/11/17 13:52) Sulfa (Sulfonamide Antibiotics) Allergy (Verified 04/11/17 13:52) - Review of Systems ROS: No change since H&P - Vital Signs and I&O's Vital Signs: Temperature 98.9 F Pulse Rate [Right Brachial] 79 Pulse Rate 114 Respiratory Rate 19 Blood Pressure [Right Arm] 125/59 Blood Pressure 178/108 O2 Sat by Pulse Oximetry 95 Intake and Output: Intake & Output 04/11/17 04/12/17 04/13/17 04/14/17 11:59 11:59 11:59 11:59 Intake Total 1450 4255 3043 Output Total 1200 1350 975 Balance 250 2905 2068 - Physical Exam Oriented: Person, Not Oriented (ONLY ORIENTED TO ) Eyes: Normal Ear: Normal Nose: Normal Throat: Normal Respiratory: Normal Cardiovascular: Tachycardia : Normal Auscultation: Bowel Sounds: Normal Palpation: Normal Tenderness: Normal Skin: Normal Musculoskeletal: Instability Psychiatric: Agitation, Other (CONFUSION, AMS ) Mood Description: Anxious Affect: Anxious Speech Pattern: Clear, Appropriate - Laboratory and Diagnostics Result Diagrams: 04/14/17 05:00 04/14/17 05:00 Labs: 04/12/17 05:46 Peg Tube Gram Stain - Final 04/12/17 05:46 Peg Tube Wound Culture - Final Laboratory WBC 9.6 X10^3/uL (3.6-10.0) 04/14/17 05:00 RBC 3.59 X10^6/uL (4.7-6.0) L 04/14/17 05:00 Hgb 10.9 g/dL (13.5-18.0) L D 04/14/17 05:00 Hct 33.1 % (42.0-54.0) L 04/14/17 05:00 MCV 92.3 fL (80.0-100.0) 04/14/17 05:00 MCH 30.4 pg (27.0-34.0) 04/14/17 05:00 MCHC 33.0 g/dL (33.0-35.0) 04/14/17 05:00 RDW 15.3 % (11.6-16.5) 04/14/17 05:00 Plt Count 287 X10^3/uL (150.0-450.0) 04/14/17 05:00 MPV 8.4 fL (7.4-11.0) 04/14/17 05:00 Neut % 81.5 % (42.0-75.0) H 04/14/17 05:00 Lymph % 7.4 % (21.0-51.0) L 04/14/17 05:00 [place] % 8.3 % (0.0-13.0) 04/14/17 05:00 Eos % 2.0 % (0.9-2.9) 04/14/17 05:00 Baso % 0.8 % (0.2-1.0) 04/14/17 05:00 Neut # 7.8 x10^3/uL (2.2-4.8) H 04/14/17 05:00 Lymph # 0.7 X10^3/uL (1.3-2.9) L 04/14/17 05:00 [place] # 0.8 x10^3/uL (0.3-0.8) 04/14/17 05:00 Eos # 0.2 x10^3/uL (0.0-0.2) 04/14/17 05:00 Baso # 0.1 X10^3/uL (0.0-0.1) 04/14/17 05:00 Absolute Nucleated RBC 0.0 /100WBC 04/14/17 05:00 INR Target Range - 04/12/17 05:25 INR 1.17 (0.8-1.3) 04/12/17 05:25 PTT 38.7 SECONDS (22.9-36.5) H 04/12/17 05:25 PTT Comment - 04/12/17 05:25 Sodium 136 mmol/L (136-145) 04/14/17 05:00 Corrected Sodium 141 mmol/L (136-145) 04/14/17 05:00 Potassium 4.5 mmol/L (3.5-5.1) 04/14/17 05:00 Chloride 105 mmol/L (98-107) 04/14/17 05:00 Carbon Dioxide 23.1 mmol/L (21-32) 04/14/17 05:00 BUN 23 mg/dL (7-18) H 04/14/17 05:00 Creatinine 1.55 mg/dL (0.70-1.30) H 04/14/17 05:00 Est GFR (MDRD) Af Amer 56 (>60) L 04/14/17 05:00 Est GFR (MDRD) Non-Af 47 (>60) L 04/14/17 05:00 Glucose 297 mg/dL (65-99) H 04/14/17 05:00 POC Glucose (mg/dL) 316 mg/dL (65-99) H 04/14/17 05:18 Calcium 7.9 mg/dL (8.5-10.1) L 04/14/17 05:00 Corrected Calcium 9.1 mg/dL (8.5-10.1) 04/14/17 05:00 Total Bilirubin 0.20 mg/dL (0.2-1.0) 04/14/17 05:00 AST 22 Units/L (15-37) 04/14/17 05:00 ALT 32 Units/L (12-78) 04/14/17 05:00 Alkaline Phosphatase 177 Units/L (46-116) H 04/14/17 05:00 Creatine Kinase 77 Units/L (39-308) 04/12/17 01:40 CK-MB (CK-2) < 1.0 ng/mL (0-4.0) 04/12/17 01:40 CK/CKMB % Calc 1.3 % (<4) 04/12/17 01:40 Troponin I 0.04 ng/mL (0-1.5) 04/12/17 01:40 Total Protein 6.0 g/dL (6.4-8.2) L 04/14/17 05:00 Albumin 2.5 g/dL (3.4-5.0) L 04/14/17 05:00 Globulin 3.5 g/dL (2.5-4.5) 04/14/17 05:00 Albumin/Globulin Ratio 0.7 Ratio (1.1-2.1) L 04/14/17 05:00 Triglycerides 65 mg/dL (0-150) 04/12/17 05:25 Cholesterol 170 mg/dL (0-200) 04/12/17 05:25 LDL Cholesterol, Calc 72 mg/dL (0-100) 04/12/17 05:25 HDL Cholesterol 85 mg/dL (40-60) H 04/12/17 05:25 Cholesterol/HDL Ratio 2.0 (0.0-5.0) 04/12/17 05:25 Specimen Type Catherized urine 04/11/17 13:19 Urine Color Yellow (YELLOW) 04/11/17 13:19 Urine Appearance Hazy (CLEAR) 04/11/17 13:19 Urine pH 7.0 (5.0 - 8.0) 04/11/17 13:19 Ur Specific [place] 1.005 (1.000-1.030) 04/11/17 13:19 Urine Protein 3+ (NEGATIVE) 04/11/17 13:19 Urine Glucose (UA) Negative (NEGATIVE) 04/11/17 13:19 Urine Ketones Negative (NEGATIVE) 04/11/17 13:19 Urine Occult Blood 3+ (NEGATIVE) 04/11/17 13:19 Urine Nitrite Negative (NEGATIVE) 04/11/17 13:19 Urine Bilirubin Negative (NEGATIVE) 04/11/17 13:19 Urine Urobilinogen Normal (NORMAL) 04/11/17 13:19 Ur Leukocyte Esterase Negative (NEGATIVE) 04/11/17 13:19 Urine RBC 0-2 /HPF (NEGATIVE) 04/11/17 13:19 Urine WBC 0-2 /HPF (NEGATIVE) 04/11/17 13:19 Ur Squamous Epith Cells Negative /HPF (NEGATIVE) 04/11/17 13:19 Urine Bacteria Trace /HPF (NEGATIVE) 04/11/17 13:19 Urine Mucus Few /HPF (NEGATIVE) 04/11/17 13:19 Ur Culture Indicated? No/not indicated 04/11/17 13:19 - Plan (1) Atrial fibrillation with RVR Status: Acute Plan: CARDIZEM CD 120MG DAILY, ELIQUIS 2.5MG PO BID, TELEMETRY, CONTINUE TO MONITOR (2) Congestive heart failure (CHF) Status: Acute Plan: LISINOPRIL 5MG PO DAILY, COREG 6.25MG BID, SUPPLEMENTAL OXYGEN, CONINTINUE TO MONITOR (3) Altered mental status Status: Acute Qualifiers: Altered mental status type: disorientation Qualified Code(s): R41.0 - Disorientation, unspecified Plan: CONTINUE NAMENDA, CONTINUE ARICEPT, CONTINUE TO MONITOR (4) Dehydration Status: Acute Plan: NORMAL SALINE @ 75ML/HR, CONTINUE TO MONITOR (5) Coronary artery disease Status: Chronic Qualifiers: Coronary Disease-Associated Artery/Lesion type: bypass graft [place] vs. transplanted heart: [place] heart Associated angina: angina presence unspecified Qualified Code(s): I25.810 - Atherosclerosis of coronary artery bypass graft(s) without angina pectoris Plan: CONTINUE ASA 81MG HS, CONTINUE TO MONITOR (6) Insomnia Status: Acute Qualifiers: Insomnia type: due to medical condition Qualified Code(s): G47.01 - Insomnia due to medical condition Plan: KLONOPRIN 0.5MG HS, SEROQUEL 100MG HS, CONTINUE TO MONITOR (7) Iron (Fe) deficiency anemia Status: Chronic Qualifiers: Iron deficiency anemia type: inadequate dietary iron intake Qualified Code( s): D50.8 - Other iron deficiency anemias Plan: CONTINUE FERROUS SULFATE, CONTINUE TO MONITOR (8) Hypertension Status: Chronic Qualifiers: Hypertension type: essential hypertension Qualified Code(s): I10 - Essential (primary) hypertension Plan: CONTINUE COREG, CONTINUE ZESTRIL, CONTINUE TO MONITOR (9) Dementia Status: Chronic Qualifiers: Dementia type: Parkinson's disease Dementia behavioral disturbance: with behavioral disturbance Qualified Code(s): G20 - Parkinson's disease; F02.81 - Dementia in other diseases classified elsewhere with behavioral disturbance Plan: CONTINUE NAMENDA, CONTINUE ARICEPT, CONTINUE LAMICTAL, CONTINUE TO MONITOR (10) GERD (gastroesophageal reflux disease) Status: Chronic Qualifiers: Esophagitis presence: esophagitis presence not specified Qualified Code(s) : K21.9 - Gastro-esophageal reflux disease without esophagitis Plan: CONTINUE ZANTAC, CONTINUE TO MONITOR (11) Hyperlipidemia Status: Chronic Qualifiers: Hyperlipidemia type: mixed hyperlipidemia Qualified Code(s): E78.2 - Mixed hyperlipidemia Plan: CONTINUE PRAVACHOL, CONTINUE TO MONITOR (12) BPH (benign prostatic hyperplasia) Status: Chronic Qualifiers: Lower urinary tract symptom detail: unspecified Plan: CONTINUE FLOMAX, CONTINUE OXYBUTYNIN, CONTINUE TO MONITOR (13) Depression Status: Chronic Qualifiers: Depression Type: major depressive disorder Major depression recurrence: recurrent Active/Remission status: remission status unspecified Qualified Code(s): F33.9 - Major depressive disorder, recurrent, unspecified Plan: CONTINUE REMERON, CONTINUE EFFEXOR, CONTINUE TO MONITOR
[2017-04-14] MEDS ORDERED: BUTT CREAM (COMPOUND) TOP PRN (18:51)
[2017-04-14] MEDS: SNACK - Diabetic Appropriate PO SCH (20:44)
[2017-04-14] MEDS: ASPIRIN 81 MG CHEWTAB PO SCH (20:45)
[2017-04-14] MEDS: KLONOPIN TAB 0.5 MG PO SCH (20:45)
[2017-04-14] MEDS: PRAVACHOL PO SCH (20:45)
[2017-04-14] MEDS: REMERON PO SCH (20:46)
[2017-04-14] MEDS ORDERED: SEROquel TAB 100 MG PO SCH ×2 (21:00)
[2017-04-15] MEDS: NS 1000 ML 1,000 ML IV SCH ×3 (01:00→17:18)
[2017-04-15] MEDS: NEURONTIN CAP 100 MG PO SCH ×3 (05:13→21:02)
[2017-04-15] MEDS: LAMICTAL TAB 100 MG PO SCH ×3 (05:14→21:01)
[2017-04-15] MEDS: HumuLIN R SUBCUT PRN ×4 (05:52→21:02)
[2017-04-15 06:08] LABS: BASOPHILS # (AUTO) 0.1 X10^3/uL (0.0-0.1); BASOPHILS % (AUTO) 0.8 % (0.2-1.0); EOSINOPHILS # (AUTO) 0.2 x10^3/uL (0.0-0.2); EOSINOPHILS % (AUTO) 2.7 % (0.9-2.9); HEMATOCRIT 36.1 % (42.0-54.0); LYMPHOCYTES # (AUTO) 1.1 X10^3/uL (1.3-2.9); LYMPHOCYTES % (AUTO) 12.1 % (21.0-51.0); MEAN CORPUSCULAR HEMOGLOBIN 30.2 pg (27.0-34.0); MEAN CORPUSCULAR HGB CONC 33.4 g/dL (33.0-35.0); MEAN CORPUSCULAR VOLUME 90.5 fL (80.0-100.0); MEAN PLATELET VOLUME 8.9 fL (7.4-11.0); MONOCYTES # (AUTO) 0.7 x10^3/uL (0.3-0.8); MONOCYTES % (AUTO) 8.2 % (0.0-13.0); NEUTROPHILS # (AUTO) 6.8 x10^3/uL (2.2-4.8); NEUTROPHILS % (AUTO) 76.2 % (42.0-75.0); PLATELET COUNT 309 X10^3/uL (150.0-450.0); RED BLOOD COUNT 3.99 X10^6/uL (4.7-6.0); RED CELL DISTRIBUTION WIDTH 15.8 % (11.6-16.5)
[2017-04-15 06:20] LABS: ALANINE AMINOTRANSFERASE 40 Units/L (12-78); ALBUMIN 2.6 g/dL (3.4-5.0); ALKALINE PHOSPHATASE 207 Units/L (46-116); ASPARTATE AMINO TRANSFERASE 35 Units/L (15-37); BLOOD UREA NITROGEN 19 mg/dL (7-18); CALCIUM 8.3 mg/dL (8.5-10.1); CARBON DIOXIDE 21.9 mmol/L (21-32); CHLORIDE 107 mmol/L (98-107); COR CA(FOR HYPOALB) 9.4 mg/dL (8.5-10.1); COR NA(FOR HYPERGLY) 144 mmol/L (136-145); CREATININE 1.44 mg/dL (0.70-1.30); SODIUM 140 mmol/L (136-145); TOTAL PROTEIN 6.6 g/dL (6.4-8.2); eGFR BLACK RACES > 60 (>60); eGFR NON BLACK RACES 51 (>60)
[2017-04-15] MEDS: EFFEXOR XR 75 MG CAP PO SCH (08:46)
[2017-04-15] MEDS: CARDIZEM SR 120 MG PO SCH (08:46)
[2017-04-15] MEDS: OXYBUTYNIN CHLORIDE ER PO SCH (08:46)
[2017-04-15] MEDS: ELIQUIS PO SCH ×2 (08:46→20:55)
[2017-04-15] MEDS: COREG TAB 6.25 MG PO SCH ×2 (08:46→20:56)
[2017-04-15] MEDS: ZANTAC PO SCH ×2 (08:46→20:56)
[2017-04-15] MEDS: FERROUS SULFATE PO SCH (08:46)
[2017-04-15] MEDS: FLOMAX PO SCH (08:46)
[2017-04-15] MEDS: ZESTRIL TAB 5 MG PO SCH (08:47)
[2017-04-15] MEDS: DIFLUCAN 200 MG IV PREMIX* 200 MG/100 ML BAG IV SCH (08:47)
[2017-04-15] MEDS: CARDIZEM CD 180 MG PO SCH (08:57)
[2017-04-15] MEDS ORDERED: CARDIZEM SR 120 MG PO SCH (09:00)
[2017-04-15] MEDS ORDERED: CARDIZEM SR 60 MG PO ONE (09:00)
--- NOTE | 2017-04-15 12:04 | PCM.PROG ---
Progress Note - Progress Note for Day of Date: 04/14/17 - Subjective Subjective: WAS ADMITTED FOR ATRIAL FIBRILLATION AND ALTERED MENTAL STATUS. HE IS LYING IN BED WITH EYES CLOSED ON MORNING ROUNDS. HE IS DIFFICULT TO AWAKEN. I SUSPECT THAT THIS IS DUES TO MEDICATIONS THAT WE STARTED TO HELP PATIENT REST AT BEDTIME. PATIENTS IS AT BEDSIDE AND EXPRESSES CONCERNS THAT SHE THINKS THE DOSAGE OF KLONOPIN AND SEROQUEL ARE TOO MUCH FOR HIM. PATIENT IS NOTED ON TELEMETRY WITH HEARTRATE AT 83BPM AND ATRIAL FIBRILLATION RHYTHM ON MONITOR. HE IS WEARING NASAL CANNULA WITH OXGYEN AT 2LPM. HE IS NOTED WITH CONTINUOUS TUBE FEEDINGS AT 10CC/HR. ON EXAMINATION, LUNGS ARE NOTED CLEAR TO AUSCULTATION. ABDOMEN IS SOFT, ROUND, AND NON-TENDER. NORMAL BOWEL SOUNDS ARE NOTED IN ALL QUADRANTS. A PEG TUBE IS NOTED WITH DRESSING DRY AND INTACT. HIS VITAL SIGNS THIS MORNING ARE 98.9-83-17-98%-141/60. CBC, CMP, AND EKG WERE OBTAINED. ABNORMAL LAB VALUES INCLUDE THE FOLLOWING: RBC 3.59, HGB 10.9, HCT 33.1, BUN 23, CREATININE 1.55, GLUCOSE 297, CALCIUM 7.9, ALK PHOS 177, TOTAL PROTEIN 6.0, ALBUMIN 2.5. EKG REPORTED ATRIAL FIBRILLATION WITH HEART RATE OF 73. TODAY, WE WILL DECREASE SEROQUEL TO 50MG AT HS AND CHANGE TUBE FEEDINGS TO 1 CAN BOLUS QID. WE ARE AWAITING ACCEPTANCE FROM [facility]. WE PLAN TO FOLLOW UP WITH AM LABS AND CONTINUE TO MONITOR PATIENT. - Past Medical Family Social History Past Med/Fam/Surg Hx: No changes since H&P Allergies: Allergies Penicillins Allergy (Verified 04/11/17 13:52) Sulfa (Sulfonamide Antibiotics) Allergy (Verified 04/11/17 13:52) - Review of Systems ROS: No change since H&P - Vital Signs and I&O's Vital Signs: Temperature 98.7 F Pulse Rate [Right Brachial] 79 Pulse Rate 114 Respiratory Rate 14 Blood Pressure [Right Arm] 120/60 Blood Pressure 178/108 O2 Sat by Pulse Oximetry 98 Intake and Output: Intake & Output 04/12/17 04/13/17 04/14/17 04/15/17 11:59 11:59 11:59 11:59 Intake Total 1450 4255 3043 3684 Output Total 1200 7172 063 6506 Balance 250 2905 2068 1184 - Physical Exam Oriented: Normal Eyes: Normal Ear: Normal Nose: Normal Throat: Normal Respiratory: Normal Cardiovascular: Tachycardia : Normal Auscultation: Bowel Sounds: Normal Palpation: Normal Tenderness: Normal Skin: Normal Musculoskeletal: Instability Psychiatric: Normal Mood Description: Calm Affect: Normal Speech Pattern: Clear, Appropriate - Laboratory and Diagnostics Result Diagrams: 04/15/17 05:15 04/15/17 05:15 Labs: 04/12/17 05:46 Peg Tube Gram Stain - Final 04/12/17 05:46 Peg Tube Wound Culture - Final Laboratory WBC 9.0 X10^3/uL (3.6-10.0) 04/15/17 05:15 RBC 3.99 X10^6/uL (4.7-6.0) L 04/15/17 05:15 Hgb 12.0 g/dL (13.5-18.0) L 04/15/17 05:15 Hct 36.1 % (42.0-54.0) L 04/15/17 05:15 MCV 90.5 fL (80.0-100.0) 04/15/17 05:15 MCH 30.2 pg (27.0-34.0) 04/15/17 05:15 MCHC 33.4 g/dL (33.0-35.0) 04/15/17 05:15 RDW 15.8 % (11.6-16.5) 04/15/17 05:15 Plt Count 309 X10^3/uL (150.0-450.0) 04/15/17 05:15 MPV 8.9 fL (7.4-11.0) 04/15/17 05:15 Neut % 76.2 % (42.0-75.0) H 04/15/17 05:15 Lymph % 12.1 % (21.0-51.0) L 04/15/17 05:15 [place] % 8.2 % (0.0-13.0) 04/15/17 05:15 Eos % 2.7 % (0.9-2.9) 04/15/17 05:15 Baso % 0.8 % (0.2-1.0) 04/15/17 05:15 Neut # 6.8 x10^3/uL (2.2-4.8) H 04/15/17 05:15 Lymph # 1.1 X10^3/uL (1.3-2.9) L 04/15/17 05:15 [place] # 0.7 x10^3/uL (0.3-0.8) 04/15/17 05:15 Eos # 0.2 x10^3/uL (0.0-0.2) 04/15/17 05:15 Baso # 0.1 X10^3/uL (0.0-0.1) 04/15/17 05:15 Absolute Nucleated RBC 0.0 /100WBC 04/15/17 05:15 INR Target Range - 04/12/17 05:25 INR 1.17 (0.8-1.3) 04/12/17 05:25 PTT 38.7 SECONDS (22.9-36.5) H 04/12/17 05:25 PTT Comment - 04/12/17 05:25 Sodium 140 mmol/L (136-145) 04/15/17 05:15 Corrected Sodium 144 mmol/L (136-145) 04/15/17 05:15 Potassium 4.4 mmol/L (3.5-5.1) 04/15/17 05:15 Chloride 107 mmol/L (98-107) 04/15/17 05:15 Carbon Dioxide 21.9 mmol/L (21-32) 04/15/17 05:15 BUN 19 mg/dL (7-18) H 04/15/17 05:15 Creatinine 1.44 mg/dL (0.70-1.30) H 04/15/17 05:15 Est GFR (MDRD) Af Amer > 60 (>60) 04/15/17 05:15 Est GFR (MDRD) Non-Af 51 (>60) L 04/15/17 05:15 Glucose 271 mg/dL (65-99) H 04/15/17 05:15 POC Glucose (mg/dL) 275 mg/dL (65-99) H 04/15/17 05:14 Calcium 8.3 mg/dL (8.5-10.1) L 04/15/17 05:15 Corrected Calcium 9.4 mg/dL (8.5-10.1) 04/15/17 05:15 Total Bilirubin 0.20 mg/dL (0.2-1.0) 04/15/17 05:15 AST 35 Units/L (15-37) 04/15/17 05:15 ALT 40 Units/L (12-78) 04/15/17 05:15 Alkaline Phosphatase 207 Units/L (46-116) H 04/15/17 05:15 Creatine Kinase 77 Units/L (39-308) 04/12/17 01:40 CK-MB (CK-2) < 1.0 ng/mL (0-4.0) 04/12/17 01:40 CK/CKMB % Calc 1.3 % (<4) 04/12/17 01:40 Troponin I 0.04 ng/mL (0-1.5) 04/12/17 01:40 Total Protein 6.6 g/dL (6.4-8.2) 04/15/17 05:15 Albumin 2.6 g/dL (3.4-5.0) L 04/15/17 05:15 Globulin 4.0 g/dL (2.5-4.5) 04/15/17 05:15 Albumin/Globulin Ratio 0.7 Ratio (1.1-2.1) L 04/15/17 05:15 Triglycerides 65 mg/dL (0-150) 04/12/17 05:25 Cholesterol 170 mg/dL (0-200) 04/12/17 05:25 LDL Cholesterol, Calc 72 mg/dL (0-100) 04/12/17 05:25 HDL Cholesterol 85 mg/dL (40-60) H 04/12/17 05:25 Cholesterol/HDL Ratio 2.0 (0.0-5.0) 04/12/17 05:25 Specimen Type Catherized urine 04/11/17 13:19 Urine Color Yellow (YELLOW) 04/11/17 13:19 Urine Appearance Hazy (CLEAR) 04/11/17 13:19 Urine pH 7.0 (5.0 - 8.0) 04/11/17 13:19 Ur Specific [place] 1.005 (1.000-1.030) 04/11/17 13:19 Urine Protein 3+ (NEGATIVE) 04/11/17 13:19 Urine Glucose (UA) Negative (NEGATIVE) 04/11/17 13:19 Urine Ketones Negative (NEGATIVE) 04/11/17 13:19 Urine Occult Blood 3+ (NEGATIVE) 04/11/17 13:19 Urine Nitrite Negative (NEGATIVE) 04/11/17 13:19 Urine Bilirubin Negative (NEGATIVE) 04/11/17 13:19 Urine Urobilinogen Normal (NORMAL) 04/11/17 13:19 Ur Leukocyte Esterase Negative (NEGATIVE) 04/11/17 13:19 Urine RBC 0-2 /HPF (NEGATIVE) 04/11/17 13:19 Urine WBC 0-2 /HPF (NEGATIVE) 04/11/17 13:19 Ur Squamous Epith Cells Negative /HPF (NEGATIVE) 04/11/17 13:19 Urine Bacteria Trace /HPF (NEGATIVE) 04/11/17 13:19 Urine Mucus Few /HPF (NEGATIVE) 04/11/17 13:19 Ur Culture Indicated? No/not indicated 04/11/17 13:19 - Plan (1) Atrial fibrillation with RVR Status: Acute Plan: CARDIZEM CD 120MG DAILY, ELIQUIS 2.5MG PO BID, TELEMETRY, CONTINUE TO MONITOR (2) Congestive heart failure (CHF) Status: Acute Plan: LISINOPRIL 5MG PO DAILY, COREG 6.25MG BID, SUPPLEMENTAL OXYGEN, CONINTINUE TO MONITOR (3) Altered mental status Status: Acute Qualifiers: Altered mental status type: disorientation Qualified Code(s): R41.0 - Disorientation, unspecified Plan: CONTINUE NAMENDA, CONTINUE ARICEPT, CONTINUE TO MONITOR (4) Dehydration Status: Acute Plan: NORMAL SALINE @ 75ML/HR, CONTINUE TO MONITOR (5) Coronary artery disease Status: Chronic Qualifiers: Coronary Disease-Associated Artery/Lesion type: bypass graft [place] vs. transplanted heart: [place] heart Associated angina: angina presence unspecified Qualified Code(s): I25.810 - Atherosclerosis of coronary artery bypass graft(s) without angina pectoris Plan: CONTINUE ASA 81MG HS, CONTINUE TO MONITOR (6) Insomnia Status: Acute Qualifiers: Insomnia type: due to medical condition Qualified Code(s): G47.01 - Insomnia due to medical condition Plan: KLONOPRIN 0.5MG HS, SEROQUEL 50MG HS, CONTINUE TO MONITOR (7) Iron (Fe) deficiency anemia Status: Chronic Qualifiers: Iron deficiency anemia type: inadequate dietary iron intake Qualified Code( s): D50.8 - Other iron deficiency anemias Plan: CONTINUE FERROUS SULFATE, CONTINUE TO MONITOR (8) Hypertension Status: Chronic Qualifiers: Hypertension type: essential hypertension Qualified Code(s): I10 - Essential (primary) hypertension Plan: CONTINUE COREG, CONTINUE ZESTRIL, CONTINUE TO MONITOR (9) Dementia Status: Chronic Qualifiers: Dementia type: Parkinson's disease Dementia behavioral disturbance: with behavioral disturbance Qualified Code(s): G20 - Parkinson's disease; F02.81 - Dementia in other diseases classified elsewhere with behavioral disturbance Plan: CONTINUE NAMENDA, CONTINUE ARICEPT, CONTINUE LAMICTAL, CONTINUE TO MONITOR (10) GERD (gastroesophageal reflux disease) Status: Chronic Qualifiers: Esophagitis presence: esophagitis presence not specified Qualified Code(s) : K21.9 - Gastro-esophageal reflux disease without esophagitis Plan: CONTINUE ZANTAC, CONTINUE TO MONITOR (11) Hyperlipidemia Status: Chronic Qualifiers: Hyperlipidemia type: mixed hyperlipidemia Qualified Code(s): E78.2 - Mixed hyperlipidemia Plan: CONTINUE PRAVACHOL, CONTINUE TO MONITOR (12) BPH (benign prostatic hyperplasia) Status: Chronic Qualifiers: Lower urinary tract symptom detail: unspecified Plan: CONTINUE FLOMAX, CONTINUE OXYBUTYNIN, CONTINUE TO MONITOR (13) Depression Status: Chronic Qualifiers: Depression Type: major depressive disorder Major depression recurrence: recurrent Active/Remission status: remission status unspecified Qualified Code(s): F33.9 - Major depressive disorder, recurrent, unspecified Plan: CONTINUE REMERON, CONTINUE EFFEXOR, CONTINUE TO MONITOR
--- NOTE | 2017-04-15 12:18 | PCM.PROG ---
Progress Note - Progress Note for Day of Date: 04/15/17 - Subjective Subjective: WAS ADMITTED FOR ATRIAL FIBRILLATION AND ALTERED MENTAL STATUS. HE IS ALERT AND ORIENTED, SITTING UP IN BED ON MORNING ROUNDS. HE DOES STILL APPEAR SOMEWHAT DROWSY. PATIENTS IS AT BEDSIDE. PATIENT IS NOTED ON TELEMETRY WITH HEARTRATE AT 93BPM. HE IS WEARING NASAL CANNULA WITH OXGYEN AT 2LPM. PATIENT REPORTS FEELING SOME BETTER THAN HE HAS IN THE PAST FEW DAYS. ON EXAMINATION, LUNGS ARE NOTED CLEAR TO AUSCULTATION. ABDOMEN IS SOFT, ROUND, AND NON-TENDER. NORMAL BOWEL SOUNDS ARE NOTED IN ALL QUADRANTS. A PEG TUBE IS NOTED WITH DRESSING DRY AND INTACT. HIS VITAL SIGNS THIS MORNING ARE 98.8-93-14-97%- 177/85. CBC, CMP, AND EKG WERE OBTAINED. ABNORMAL LAB VALUES INCLUDE THE FOLLOWING: RBC 3.99, HGB 12, HCT 36.1, BUN 19, CREATININE 1.44, GLUCOSE 271, CALCIUM 8.3, ALK PHOS 207, ALBUMIN 2.6. EKG REPORTED ATRIAL FLUTTER WITH HEART RATE OF 93. TODAY, WE WILL DECREASE SEROQUEL TO 25MG AT HS AND DISCONTINUE KLONOPIN. WE WILL ALSO INCREASE CARDIZEM TO CARDIZEM CD 180MG DAILY AND START ALBUMIN 25% DAILY. WE ARE AWAITING ACCEPTANCE FROM [facility]. WE PLAN TO FOLLOW UP WITH AM LABS AND CONTINUE TO MONITOR PATIENT. - Past Medical Family Social History Past Med/Fam/Surg Hx: No changes since H&P Allergies: Allergies Penicillins Allergy (Verified 04/11/17 13:52) Sulfa (Sulfonamide Antibiotics) Allergy (Verified 04/11/17 13:52) - Review of Systems ROS: No change since H&P - Vital Signs and I&O's Vital Signs: Temperature 98.7 F Pulse Rate [Right Brachial] 79 Pulse Rate 114 Respiratory Rate 14 Blood Pressure [Right Arm] 120/60 Blood Pressure 178/108 O2 Sat by Pulse Oximetry 98 Intake and Output: Intake & Output 04/13/17 04/14/17 04/15/17 04/16/17 11:59 11:59 11:59 11:59 Intake Total 4255 3043 3684 Output Total 6866 277 5106 Balance 2905 2068 1184 - Physical Exam Oriented: Normal Eyes: Normal Ear: Normal Nose: Normal Throat: Normal Respiratory: Normal Cardiovascular: Normal : Normal Auscultation: Bowel Sounds: Normal Palpation: Normal Tenderness: Normal Skin: Normal Musculoskeletal: Instability Psychiatric: Normal Mood Description: Calm Affect: Normal Speech Pattern: Clear, Appropriate - Laboratory and Diagnostics Result Diagrams: 04/15/17 05:15 04/15/17 05:15 Labs: 04/12/17 05:46 Peg Tube Gram Stain - Final 04/12/17 05:46 Peg Tube Wound Culture - Final Laboratory WBC 9.0 X10^3/uL (3.6-10.0) 04/15/17 05:15 RBC 3.99 X10^6/uL (4.7-6.0) L 04/15/17 05:15 Hgb 12.0 g/dL (13.5-18.0) L 04/15/17 05:15 Hct 36.1 % (42.0-54.0) L 04/15/17 05:15 MCV 90.5 fL (80.0-100.0) 04/15/17 05:15 MCH 30.2 pg (27.0-34.0) 04/15/17 05:15 MCHC 33.4 g/dL (33.0-35.0) 04/15/17 05:15 RDW 15.8 % (11.6-16.5) 04/15/17 05:15 Plt Count 309 X10^3/uL (150.0-450.0) 04/15/17 05:15 MPV 8.9 fL (7.4-11.0) 04/15/17 05:15 Neut % 76.2 % (42.0-75.0) H 04/15/17 05:15 Lymph % 12.1 % (21.0-51.0) L 04/15/17 05:15 [place] % 8.2 % (0.0-13.0) 04/15/17 05:15 Eos % 2.7 % (0.9-2.9) 04/15/17 05:15 Baso % 0.8 % (0.2-1.0) 04/15/17 05:15 Neut # 6.8 x10^3/uL (2.2-4.8) H 04/15/17 05:15 Lymph # 1.1 X10^3/uL (1.3-2.9) L 04/15/17 05:15 [place] # 0.7 x10^3/uL (0.3-0.8) 04/15/17 05:15 Eos # 0.2 x10^3/uL (0.0-0.2) 04/15/17 05:15 Baso # 0.1 X10^3/uL (0.0-0.1) 04/15/17 05:15 Absolute Nucleated RBC 0.0 /100WBC 04/15/17 05:15 INR Target Range - 04/12/17 05:25 INR 1.17 (0.8-1.3) 04/12/17 05:25 PTT 38.7 SECONDS (22.9-36.5) H 04/12/17 05:25 PTT Comment - 04/12/17 05:25 Sodium 140 mmol/L (136-145) 04/15/17 05:15 Corrected Sodium 144 mmol/L (136-145) 04/15/17 05:15 Potassium 4.4 mmol/L (3.5-5.1) 04/15/17 05:15 Chloride 107 mmol/L (98-107) 04/15/17 05:15 Carbon Dioxide 21.9 mmol/L (21-32) 04/15/17 05:15 BUN 19 mg/dL (7-18) H 04/15/17 05:15 Creatinine 1.44 mg/dL (0.70-1.30) H 04/15/17 05:15 Est GFR (MDRD) Af Amer > 60 (>60) 04/15/17 05:15 Est GFR (MDRD) Non-Af 51 (>60) L 04/15/17 05:15 Glucose 271 mg/dL (65-99) H 04/15/17 05:15 POC Glucose (mg/dL) 268 mg/dL (65-99) H 04/15/17 12:05 Calcium 8.3 mg/dL (8.5-10.1) L 04/15/17 05:15 Corrected Calcium 9.4 mg/dL (8.5-10.1) 04/15/17 05:15 Total Bilirubin 0.20 mg/dL (0.2-1.0) 04/15/17 05:15 AST 35 Units/L (15-37) 04/15/17 05:15 ALT 40 Units/L (12-78) 04/15/17 05:15 Alkaline Phosphatase 207 Units/L (46-116) H 04/15/17 05:15 Creatine Kinase 77 Units/L (39-308) 04/12/17 01:40 CK-MB (CK-2) < 1.0 ng/mL (0-4.0) 04/12/17 01:40 CK/CKMB % Calc 1.3 % (<4) 04/12/17 01:40 Troponin I 0.04 ng/mL (0-1.5) 04/12/17 01:40 Total Protein 6.6 g/dL (6.4-8.2) 04/15/17 05:15 Albumin 2.6 g/dL (3.4-5.0) L 04/15/17 05:15 Globulin 4.0 g/dL (2.5-4.5) 04/15/17 05:15 Albumin/Globulin Ratio 0.7 Ratio (1.1-2.1) L 04/15/17 05:15 Triglycerides 65 mg/dL (0-150) 04/12/17 05:25 Cholesterol 170 mg/dL (0-200) 04/12/17 05:25 LDL Cholesterol, Calc 72 mg/dL (0-100) 04/12/17 05:25 HDL Cholesterol 85 mg/dL (40-60) H 04/12/17 05:25 Cholesterol/HDL Ratio 2.0 (0.0-5.0) 04/12/17 05:25 Specimen Type Catherized urine 04/11/17 13:19 Urine Color Yellow (YELLOW) 04/11/17 13:19 Urine Appearance Hazy (CLEAR) 04/11/17 13:19 Urine pH 7.0 (5.0 - 8.0) 04/11/17 13:19 Ur Specific [place] 1.005 (1.000-1.030) 04/11/17 13:19 Urine Protein 3+ (NEGATIVE) 04/11/17 13:19 Urine Glucose (UA) Negative (NEGATIVE) 04/11/17 13:19 Urine Ketones Negative (NEGATIVE) 04/11/17 13:19 Urine Occult Blood 3+ (NEGATIVE) 04/11/17 13:19 Urine Nitrite Negative (NEGATIVE) 04/11/17 13:19 Urine Bilirubin Negative (NEGATIVE) 04/11/17 13:19 Urine Urobilinogen Normal (NORMAL) 04/11/17 13:19 Ur Leukocyte Esterase Negative (NEGATIVE) 04/11/17 13:19 Urine RBC 0-2 /HPF (NEGATIVE) 04/11/17 13:19 Urine WBC 0-2 /HPF (NEGATIVE) 04/11/17 13:19 Ur Squamous Epith Cells Negative /HPF (NEGATIVE) 04/11/17 13:19 Urine Bacteria Trace /HPF (NEGATIVE) 04/11/17 13:19 Urine Mucus Few /HPF (NEGATIVE) 04/11/17 13:19 Ur Culture Indicated? No/not indicated 04/11/17 13:19 - Plan (1) Atrial fibrillation with RVR Status: Acute Plan: CARDIZEM CD 180MG DAILY, ELIQUIS 2.5MG PO BID, TELEMETRY, CONTINUE TO MONITOR (2) Congestive heart failure (CHF) Status: Acute Plan: LISINOPRIL 5MG PO DAILY, COREG 6.25MG BID, SUPPLEMENTAL OXYGEN, CONINTINUE TO MONITOR (3) Altered mental status Status: Acute Qualifiers: Altered mental status type: disorientation Qualified Code(s): R41.0 - Disorientation, unspecified Plan: CONTINUE NAMENDA, CONTINUE ARICEPT, CONTINUE TO MONITOR (4) Dehydration Status: Acute Plan: NORMAL SALINE @ 75ML/HR, CONTINUE TO MONITOR (5) Coronary artery disease Status: Chronic Qualifiers: Coronary Disease-Associated Artery/Lesion type: bypass graft [place] vs. transplanted heart: [place] heart Associated angina: angina presence unspecified Qualified Code(s): I25.810 - Atherosclerosis of coronary artery bypass graft(s) without angina pectoris Plan: CONTINUE ASA 81MG HS, CONTINUE TO MONITOR (6) Insomnia Status: Acute Qualifiers: Insomnia type: due to medical condition Qualified Code(s): G47.01 - Insomnia due to medical condition Plan: SEROQUEL 25MG HS, CONTINUE TO MONITOR (7) Iron (Fe) deficiency anemia Status: Chronic Qualifiers: Iron deficiency anemia type: inadequate dietary iron intake Qualified Code( s): D50.8 - Other iron deficiency anemias Plan: CONTINUE FERROUS SULFATE, CONTINUE TO MONITOR (8) Hypertension Status: Chronic Qualifiers: Hypertension type: essential hypertension Qualified Code(s): I10 - Essential (primary) hypertension Plan: CONTINUE COREG, CONTINUE ZESTRIL, CONTINUE TO MONITOR (9) Dementia Status: Chronic Qualifiers: Dementia type: Parkinson's disease Dementia behavioral disturbance: with behavioral disturbance Qualified Code(s): G20 - Parkinson's disease; F02.81 - Dementia in other diseases classified elsewhere with behavioral disturbance Plan: CONTINUE NAMENDA, CONTINUE ARICEPT, CONTINUE LAMICTAL, CONTINUE TO MONITOR (10) GERD (gastroesophageal reflux disease) Status: Chronic Qualifiers: Esophagitis presence: esophagitis presence not specified Qualified Code(s) : K21.9 - Gastro-esophageal reflux disease without esophagitis Plan: CONTINUE ZANTAC, CONTINUE TO MONITOR (11) Hyperlipidemia Status: Chronic Qualifiers: Hyperlipidemia type: mixed hyperlipidemia Qualified Code(s): E78.2 - Mixed hyperlipidemia Plan: CONTINUE PRAVACHOL, CONTINUE TO MONITOR (12) BPH (benign prostatic hyperplasia) Status: Chronic Qualifiers: Lower urinary tract symptom detail: unspecified Plan: CONTINUE FLOMAX, CONTINUE OXYBUTYNIN, CONTINUE TO MONITOR (13) Depression Status: Chronic Qualifiers: Depression Type: major depressive disorder Major depression recurrence: recurrent Active/Remission status: remission status unspecified Qualified Code(s): F33.9 - Major depressive disorder, recurrent, unspecified Plan: CONTINUE REMERON, CONTINUE EFFEXOR, CONTINUE TO MONITOR (14) Hypoalbuminemia Status: Acute Plan: ALBUMIN 25% DAILY, CONTINUE TO MONITOR
[2017-04-15] MEDS: NAMENDA TAB 10 MG PO SCH (12:31)
[2017-04-15] MEDS: ARICEPT TAB 10 MG PO SCH (12:33)
[2017-04-15] MEDS: TAB-A-VITE PO SCH (12:34)
[2017-04-15] MEDS: ALBUMIN HUMAN 25%- 100ML 100 ML IV SCH (12:37)
[2017-04-15] MEDS ORDERED: CARDIZEM TAB 30 MG PLAIN ONE (13:27)
[2017-04-15] MEDS: SNACK - Diabetic Appropriate PO SCH (20:54)
[2017-04-15] MEDS: ASPIRIN 81 MG CHEWTAB PO SCH (20:55)
[2017-04-15] MEDS ORDERED: SEROquel TAB 100 MG PO SCH (21:00)
[2017-04-15] MEDS: PRAVACHOL PO SCH (21:01)
[2017-04-15] MEDS: REMERON PO SCH (21:02)
[2017-04-16] MEDS: NS 1000 ML 1,000 ML IV SCH (05:19)
[2017-04-16] MEDS: NEURONTIN CAP 100 MG PO SCH (05:19)
[2017-04-16] MEDS: LAMICTAL TAB 100 MG PO SCH (05:19)
[2017-04-16] MEDS: HumuLIN R SUBCUT PRN ×2 (05:30→11:34)
[2017-04-16 06:16] LABS: BASOPHILS # (AUTO) 0.1 X10^3/uL (0.0-0.1); EOSINOPHILS # (AUTO) 0.2 x10^3/uL (0.0-0.2); EOSINOPHILS % (AUTO) 2.7 % (0.9-2.9); HEMATOCRIT 35.6 % (42.0-54.0); LYMPHOCYTES % (AUTO) 10.9 % (21.0-51.0); MEAN CORPUSCULAR HEMOGLOBIN 30.4 pg (27.0-34.0); MEAN CORPUSCULAR HGB CONC 33.7 g/dL (33.0-35.0); MEAN CORPUSCULAR VOLUME 90.2 fL (80.0-100.0); MEAN PLATELET VOLUME 8.9 fL (7.4-11.0); MONOCYTES # (AUTO) 0.7 x10^3/uL (0.3-0.8); MONOCYTES % (AUTO) 7.8 % (0.0-13.0); NEUTROPHILS % (AUTO) 77.6 % (42.0-75.0); PLATELET COUNT 323 X10^3/uL (150.0-450.0); RED BLOOD COUNT 3.95 X10^6/uL (4.7-6.0); RED CELL DISTRIBUTION WIDTH 15.5 % (11.6-16.5)
[2017-04-16 06:19] LABS: ALANINE AMINOTRANSFERASE 50 Units/L (12-78); ALBUMIN 2.9 g/dL (3.4-5.0); ALKALINE PHOSPHATASE 222 Units/L (46-116); ASPARTATE AMINO TRANSFERASE 54 Units/L (15-37); BLOOD UREA NITROGEN 15 mg/dL (7-18); CALCIUM 8.6 mg/dL (8.5-10.1); CARBON DIOXIDE 23.8 mmol/L (21-32); CHLORIDE 107 mmol/L (98-107); COR CA(FOR HYPOALB) 9.5 mg/dL (8.5-10.1); COR NA(FOR HYPERGLY) 141 mmol/L (136-145); CREATININE 1.34 mg/dL (0.70-1.30); SODIUM 139 mmol/L (136-145); TOTAL PROTEIN 6.7 g/dL (6.4-8.2); eGFR BLACK RACES > 60 (>60); eGFR NON BLACK RACES 55 (>60)
[2017-04-16] MEDS: ALBUMIN HUMAN 25%- 100ML 100 ML IV SCH (09:27)
[2017-04-16] MEDS: DIFLUCAN 200 MG IV PREMIX* 200 MG/100 ML BAG IV SCH (09:28)
[2017-04-16] MEDS: EFFEXOR XR 75 MG CAP PO SCH (09:28)
[2017-04-16] MEDS: ELIQUIS PO SCH (09:28)
[2017-04-16] MEDS: OXYBUTYNIN CHLORIDE ER PO SCH (09:29)
[2017-04-16] MEDS: ZESTRIL TAB 5 MG PO SCH (09:30)
[2017-04-16] MEDS: ZANTAC PO SCH (09:30)
[2017-04-16] MEDS: COREG TAB 6.25 MG PO SCH (09:30)
[2017-04-16] MEDS: TAB-A-VITE PO SCH (09:30)
[2017-04-16] MEDS: FLOMAX PO SCH (09:30)
[2017-04-16] MEDS: FERROUS SULFATE PO SCH (09:30)
[2017-04-16] MEDS: CARDIZEM CD 180 MG PO SCH (09:31)
[2017-04-16 10:45] VITALS: BP 172/80
[2017-04-16] MEDS: NAMENDA TAB 10 MG PO SCH (11:33)
[2017-04-16] MEDS: ARICEPT TAB 10 MG PO SCH (11:33)
== END 2017-04-16 11:39 | DRG 309 ==
LOC: ER 12:53 → ICU 15:06 → OBSVTOIN 04-12 09:20
PROVIDERS: ADMIT Internal Medicine; ATTEND Internal Medicine
DX: I48.91 Unspecified atrial fibrillation (principal); R41.0 Disorientation, unspecified; R53.1 Weakness; E86.0 Dehydration; R29.6 Repeated falls; I50.9 Heart failure, unspecified; I25.810 Atherosclerosis of coronary artery bypass graft(s) without angina pectoris; G47.01 Insomnia due to medical condition; D50.8 Other iron deficiency anemias; I10 Essential (primary) hypertension; G20 Parkinson's disease; K21.9 Gastro-esophageal reflux disease without esophagitis; E78.2 Mixed hyperlipidemia; N40.0 Benign prostatic hyperplasia without lower urinary tract symptoms; F33.8 Other recurrent depressive disorders; R94.31 Abnormal electrocardiogram [ECG] [EKG]; R26.89 Other abnormalities of gait and mobility
CPT/HCPCS: 36415; 51702; 71010; 74000; 80053; 80061; 81001; 82550; 82553; 84484; 85025; 85610; 85730; 87070; 87075; 87205; 93005; 93306; 96365; 96367; 97535; 99284; A4222; P9047; G0378; J1450; J1815

== ENCOUNTER 2017-04-26 19:50 | Emergency (ER) | payer OTHER ==
[2017-04-26] MEDS ORDERED: D50W ABBOJECT SYR IV ONE (20:09)
[2017-04-26] MEDS ORDERED: D5W 1000 ML IV 1,000 ML IV ONE ×2 (20:10→20:18)
--- NOTE | 2017-04-26 20:12 | DR.GENAD ---
HPI - Complaint/Symptoms Chief Complaint Doctors Comments: Patient was transferred from the [facility] to [facility]. Earlier in the day his glucose was elevated and he was given doses of insulin of 10 and 20 units. The ED was called when his glucose was rechecked and reported to be less than twenty. Patient is in the nursing for rehabilitation of ambulatory skills. The initial the patient was unresponsive to painful stemuli. PMH - PMH Past Medical History: Alzheimers, Coronary Artery Disease, Dementia, Depression , Diabetes, Dyslipidemia, GERD, Hypertension Past Surgical History: No Surgical History: Appendectomy, CABG/Valve Surgery, Tonsillectomy ROS - Review of Systems Constitutional: negative: Diaphoresis Eyes: No Symptoms Reported ENTM: No Symptoms Reported Respiratoy: No Symptoms Reported Cardiovascular: No Symptoms Reported Gastrointestinal/Abdominal: No Symptoms Reported Genitourinary: No Symptoms Reported Neurological: No Symptoms Reported Musculoskeletal: No Symptoms Reported Integumentary: No Symptoms Reported Hematologic/Lymphatic: No Symptoms Reported Endocrine: No Symptoms Reported Psychiatric: No Symptoms Reported All Other Systems: Reviewed and Negative PE - Vital Signs Vitals: Temperature 97.3 F Pulse Rate 86 Respiratory Rate 16 Blood Pressure [Right Arm] 172/80 Blood Pressure 143/75 O2 Sat by Pulse Oximetry 100 - General General Appearance: Alert, In No Apparent Distress - Head Head Exam: Normal Inspection, Atraumatic - Eyes Eye exam: Normal Appearance, PERRL, EOMI - ENT ENT Exam: Normal Exam External Ear Exam: Normal External Inspection TM/Canal Exam: Bilateral Normal Nose Exam: Normal Nose Exam Mouth Exam: Normal Inspection Throat Exam: Normal Inspection - Neck Neck Exam: Normal Inspection, Full ROM - Chest Chest Inspection: Normal Inspection, Symmetric Chest Wall Rise - Respiratory Respiratory Exam: Normal Lung Sounds Bilat Respiratory Exam: Bilateral Clear to Auscultation - Cardiovascular Cardiovascular Exam: Regular Rate, Normal Rhythm - Abdominal Exam Abdominal Exam: Normal Inspection Abdominal Tenderness: negative: RUQ, RLQ, LUQ, LLQ, Epigastrium, Suprapubic, Diffuse, Mild, Moderate, Severe, Other - Extremities Extremities Exam: Normal Inspection, Full ROM - Back Back Exam: Normal Inspection, Full ROM - Neurologic Neurological Exam: Alert, Oriented X3, CN II-XII Intact - Psychiatric Psychiatric Exam: Normal Affect, Normal Mood - Skin Skin Exam: Warm, Dry, Intact Course - Treatment Treatment: In the ED patients glucose was 20mg/dl. He received D50 IV stat. He became alert; repeat glucose 130mg/dl ROR - Labs Reviewed Result Diagrams: 04/26/17 19:55 04/26/17 19:55 Laboratory: WBC 9.7 X10^3/uL (3.6-10.0) 04/26/17 19:55 RBC 4.00 X10^6/uL (4.7-6.0) L 04/26/17 19:55 Hgb 12.0 g/dL (13.5-18.0) L 04/26/17 19:55 Hct 35.5 % (42.0-54.0) L 04/26/17 19:55 MCV 88.7 fL (80.0-100.0) 04/26/17 19:55 MCH 30.0 pg (27.0-34.0) 04/26/17 19:55 MCHC 33.8 g/dL (33.0-35.0) 04/26/17 19:55 RDW 14.9 % (11.6-16.5) 04/26/17 19:55 Plt Count 626 X10^3/uL (150.0-450.0) H 04/26/17 19:55 Plt Count Comment Increased (ADEQUATE) 04/26/17 19:55 MPV 7.5 fL (7.4-11.0) 04/26/17 19:55 Neut % 72.3 % (42.0-75.0) 04/26/17 19:55 Lymph % 13.4 % (21.0-51.0) L 04/26/17 19:55 [place] % 10.0 % (0.0-13.0) 04/26/17 19:55 Eos % 3.3 % (0.9-2.9) H 04/26/17 19:55 Baso % 1.0 % (0.2-1.0) 04/26/17 19:55 Neut # 7.0 x10^3/uL (2.2-4.8) H 04/26/17 19:55 Lymph # 1.3 X10^3/uL (1.3-2.9) 04/26/17 19:55 [place] # 1.0 x10^3/uL (0.3-0.8) H 04/26/17 19:55 Eos # 0.3 x10^3/uL (0.0-0.2) H 04/26/17 19:55 Baso # 0.1 X10^3/uL (0.0-0.1) 04/26/17 19:55 Absolute Nucleated RBC 0.0 /100WBC 04/26/17 19:55 Plt Morphology Comment Normal (NORMAL) 04/26/17 19:55 RBC Morphology Normal (NORMAL) 04/26/17 19:55 Sodium 138 mmol/L (136-145) 04/26/17 19:55 Corrected Sodium TNP 04/26/17 19:55 Potassium 4.3 mmol/L (3.5-5.1) 04/26/17 19:55 Chloride 99 mmol/L (98-107) 04/26/17 19:55 Carbon Dioxide 28.6 mmol/L (21-32) 04/26/17 19:55 BUN 36 mg/dL (7-18) H 04/26/17 19:55 Creatinine 1.68 mg/dL (0.70-1.30) H 04/26/17 19:55 Est GFR (MDRD) Af Amer 51 (>60) L 04/26/17 19:55 Est GFR (MDRD) Non-Af 42 (>60) L 04/26/17 19:55 Glucose 21 mg/dL (65-99) L* 04/26/17 19:55 POC Glucose (mg/dL) 134 mg/dL (65-99) H 04/26/17 20:26 Calcium 9.6 mg/dL (8.5-10.1) 04/26/17 19:55 Corrected Calcium 10.2 mg/dL (8.5-10.1) H 04/26/17 19:55 Total Bilirubin 0.20 mg/dL (0.2-1.0) 04/26/17 19:55 AST 83 Units/L (15-37) H 04/26/17 19:55 ALT 70 Units/L (12-78) 04/26/17 19:55 Alkaline Phosphatase 252 Units/L (46-116) H 04/26/17 19:55 Total Protein 8.1 g/dL (6.4-8.2) 04/26/17 19:55 Albumin 3.2 g/dL (3.4-5.0) L 04/26/17 19:55 Globulin 4.9 g/dL (2.5-4.5) H 04/26/17 19:55 Albumin/Globulin Ratio 0.7 Ratio (1.1-2.1) L 04/26/17 19:55 - Diagnosis Discharge Problem: Hypoglycemia - Discharge Plan Condition: Stable - Follow ups/Referrals Follow ups/Referrals: Leo Roman [Primary Care Provider] - 3 days - Instructions
[2017-04-26 20:15] VITALS: BMI 22.1
[2017-04-26 20:17] LABS: BASOPHILS # (AUTO) 0.1 X10^3/uL (0.0-0.1); EOSINOPHILS # (AUTO) 0.3 x10^3/uL (0.0-0.2); EOSINOPHILS % (AUTO) 3.3 % (0.9-2.9); HEMATOCRIT 35.5 % (42.0-54.0); LYMPHOCYTES # (AUTO) 1.3 X10^3/uL (1.3-2.9); LYMPHOCYTES % (AUTO) 13.4 % (21.0-51.0); MEAN CORPUSCULAR HGB CONC 33.8 g/dL (33.0-35.0); MEAN CORPUSCULAR VOLUME 88.7 fL (80.0-100.0); MEAN PLATELET VOLUME 7.5 fL (7.4-11.0); NEUTROPHILS % (AUTO) 72.3 % (42.0-75.0); PLATELET COUNT 626 X10^3/uL (150.0-450.0); RED CELL DISTRIBUTION WIDTH 14.9 % (11.6-16.5); WHITE BLOOD COUNT 9.7 X10^3/uL (3.6-10.0)
[2017-04-26] MEDS ORDERED: D50W ABBOJECT SYR ONE (20:19)
[2017-04-26 20:24] LABS: BLOOD UREA NITROGEN 36 mg/dL (7-18); CALCIUM 9.6 mg/dL (8.5-10.1); CARBON DIOXIDE 28.6 mmol/L (21-32); CHLORIDE 99 mmol/L (98-107); CREATININE 1.68 mg/dL (0.70-1.30); SODIUM 138 mmol/L (136-145); eGFR BLACK RACES 51 (>60); eGFR NON BLACK RACES 42 (>60)
[2017-04-26 20:25] LABS: ALANINE AMINOTRANSFERASE 70 Units/L (12-78); ALBUMIN 3.2 g/dL (3.4-5.0); ALKALINE PHOSPHATASE 252 Units/L (46-116); ASPARTATE AMINO TRANSFERASE 83 Units/L (15-37); COR CA(FOR HYPOALB) 10.2 mg/dL (8.5-10.1); TOTAL PROTEIN 8.1 g/dL (6.4-8.2)
[2017-04-26 20:30] LABS: PLATELET MORPHOLOGY COMMENT NORMAL (NORMAL)
[2017-04-26 22:16] VITALS: BP 158/78
--- NOTE | 2017-04-26 22:19 | RAD ---
HISTORY: Hypoglycemic Study: Single view chest Comparison: 04/13/2017 Findings: Single portable view submitted. The lungs are clear without consolidation, effusion or pneumothorax. The cardiac and mediastinal contours are within normal limits. The soft tissues are unremarkable. IMPRESSION: 1. No acute cardiopulmonary abnormality. Reported By:
== END 2017-04-26 21:58 ==
LOC: ER 20:03
DX: R16.2 Hepatomegaly with splenomegaly, not elsewhere classified (principal)
CPT/HCPCS: 36415; 71010; 80053; 85025; 96365; 96374; 99283; 99284; A4222; J3490